=== PATIENT | male | born 1940 | race Caucasian/White ===

== ENCOUNTER 2016-09-30 12:36 | Inpatient (IN) ==
[2016-09-30 13:42] LABS: MANUAL DIFF NEEDED? NO; URINE CULTURE NEEDED? NO; URINE MICRO REVIEW NEEDED? NO; URINE SOURCE CLEAN CATCH
[2016-09-30 13:46] LABS: BASO% 0.4 % (0.0-0.8); EOS# 0.24 X1000 (0.0-0.7); EOS% 4.4 % (0.0-10.0); HEMATOCRIT 40.3 % (42.0-52.0); HEMOGLOBIN 13.6 g/dL (14.0-18.0); LYMPH# 1.24 X1000 (1.2-3.4); LYMPH% 22.6 % (20.5-51.1); MCH 30.4 PG (27-31); MCHC 33.7 g/dL (33-37); MCV 90.2 FL (81-99); MONO# 0.44 X1000 (0.11-0.59); MPV 9.2 FL (7.4-10.4); NEUT% 64.6 % (42.2-75.2); PLT 261 X1000 (130-400); RBC 4.47 XMIL (4.7-6.1)
[2016-09-30 13:49] LABS: BILIRUBIN URINE NEGATIVE (NEGATIVE); BLOOD URINE TRACE (NEGATIVE); COLOR YELLOW; GLUCOSE URINE 1000 mg/dL (NEGATIVE); LEUKOCYTES URINE NEGATIVE (NEGATIVE); NITRITE URINE NEGATIVE (NEGATIVE); PH URINE 5.5; PROTEIN URINE TRACE mg/dL (NEGATIVE); SP GRAVITY URINE 1.009; TURBIDITY URINE CLEAR (CLEAR); UROBILINOGEN URINE NORMAL (NORMAL)
[2016-09-30 13:51] LABS: UR EPITHELIAL CELLS <10 /HPF (<10); URINE BACTERIA NEGATIVE /HPF; URINE RBC <10 /HPF (<10); URINE WBC <10 /HPF (<10)
[2016-09-30 14:01] LABS: AGAP 18; ALBUMIN 3.7 g/dL (3.5-5.0); ALKALINE PHOSPHATASE 111 U/L (32-122); AMYLASE 69 U/L (20-200); BUN 19 mg/dL (8-22); CALCIUM 9.3 mg/dL (8.8-10.2); CHLORIDE 96 mmol/L (98-107); COSMO 283; GOT 14 U/L (10-34); GPT 10 U/L (10-44); LIPASE 209 U/L (13-60); POTASSIUM 4.2 mmol/L (3.5-5.1); SODIUM 137 mmol/L (136-145); TCO2 23 mmol/L (25-35); TOTAL BILIRUBIN 0.19 mg/dL (0.20-1.00); TOTAL PROTEIN 7.5 g/dL (6.3-8.3)
[2016-09-30] MEDS ORDERED: ZOFRAN IV ONE (15:48)
[2016-09-30] MEDS ORDERED: NS 1,000 ML IV ONE (15:48)
--- NOTE | 2016-09-30 15:49 | PROVIDER DOCUMENTATION ---
HPI-General Adult - General Chief Complaint: General Adult Stated Complaint: GENERAL Time Seen by Provider: 09/30/16 15:13 Source: patient, family Allergies/Adverse Reactions: Patient Allergies Allergy/AdvReac Type Severity Reaction Status Date / Time No Known Allergies Allergy Verified 09/30/16 13:39 Home Medications: Home Medication List Medication Instructions Recorded Confirmed Last Taken Type Metformin [Glucophage] 850 mg PO BID 12/10/13 09/30/16 09/30/16 07:00 History Aspirin 81 mg PO DAILY 02/11/16 09/30/16 09/30/16 07:00 History ATORVAstatin [Lipitor] 20 mg PO DAILY 09/30/16 09/30/16 09/30/16 07:00 History Clopidogrel [Plavix] 75 mg PO DAILY 09/30/16 09/30/16 09/30/16 07:00 History Furosemide 40 mg PO DAILY 09/30/16 09/30/16 09/30/16 07:00 History Glipizide [Glipizide ER] 10 mg PO DAILY 09/30/16 09/30/16 09/30/16 07:00 History LISINOpril [Prinivil] 10 mg PO DAILY 09/30/16 09/30/16 09/30/16 07:00 History Metoprolol [Lopressor] 50 mg PO DAILY 09/30/16 09/30/16 09/30/16 07:00 History Polyethylene Glycol [Polyox 1 dose PO DAILY 09/30/16 09/30/16 09/30/16 07:00 History [id number]] Pot Chloride/Pot Bicarb/Cit AC 10 meq PO DAILY 09/30/16 09/30/16 09/30/16 07:00 History [Potassium Cl 25 Meq Tab Eff] Tramadol [Ultram] 50 mg PO PRN PRN 09/30/16 09/30/16 Unknown History - History of Present Illness -Gen Adult Nature of Presenting Problems: 76 year old WM presents with c/o shortness of breath for months, getting worse, abd pain for 1 week, intermittent, with associated loss of appetite, nausea. pt reports he was evaluated by his PMD today for these complaints and they sent him here. Review of Systems - Adult - REVIEW OF SYSTEMS - ADULT Constitutional: reports: see HPI, chills, fever. denies: fatique Eyes: reports: no symptoms reported. denies: discharge, blurred vision, double vision, redness Ears, Nose, Mouth & Throat: reports: no symptoms reported. denies: ear discharge, ear pain, nose pain, loose teeth, throat pain, throat swelling Cardiovascular: reports: no symptoms reported. denies: chest pain, palpitations , syncope Respiratory: reports: see HPI, shortness of breath. denies: chronic cough, cough, dyspnea on exertion, excessive sputum production, hemoptysis, pleurisy, wheezing Gastrointestinal: reports: see HPI, abdominal pain, nausea, poor appetite, vomiting. denies: hematemesis, constipation, diarrhea, difficulty swallowing, frequent heartburn, rectal bleeding Genitourinary: reports: see HPI, urinary retention (with loss of urine stream). denies: dysuria, hematuria Musculoskeletal: reports: no symptoms reported. denies: bone pain, joint pain, joint swelling Integumentary: reports: no symptoms reported. denies: hives, itching, skin sores/ulcer Neurological: reports: no symptoms reported. denies: ataxia, dizziness/vertigo Psychiatric: reports: no symptoms reported Endocrine: reports: no symptoms reported Hematologic/Lymphatic: reports: no symptoms reported. denies: blood clots, easy bruising, prolonged bleeding, swollen lymph nodes Allergic/Immunologic: reports: no symptoms reported. denies: allergic reactions , allergic rhinitis, frequent infections All Other Systems: Reviewed and Negative Past History - Adult - PAST MEDICAL HISTORY-ADULT Review of Records: reports: Old Records Reviewed, Nursing Assessment Review, Medications Reviewed, Social history reviewed & non-contributory. Major Childhood Illnesses: reports: denies history Cardiovascular: reports: cardiac disease, CAD, CHF, HTN, hyperlipidemia Respiratory: reports: denies history Gastrointestinal: reports: GERD Obstetrical/Gynecological: reports: denies history Genitourinary: reports: denies history Musculoskeletal: reports: chronic pain, neck/back injury Neurological: reports: denies history Psychiatric: reports: denies history Endocrine/Immune: reports: Diabetes Diabetes controlled by:: PO Meds Other Conditions: reports: denies history - PRIOR SURGERIES/PROCEDURES Surgical/Procedure History: reports: CABG - IMMUNIZATION STATUS Childhood Immunizations: See Nurse Assessment Flu Vaccine: See Nurse Assessment - FAMILY HISTORY Family History: reviewed, not pertinent - SOCIAL HISTORY Smoking: cigarettes Provider spent 3-5 mins advising pt. on dangers of tobacco.: Discussed manners to quit use, and f/u contacts for add'l counseling. Substance Use: none/never Alcohol Use Frequency: never Physical Exam-General - PHYSICAL EXAM-ADULT Initial Vital Signs Reviewed: Yes - CONSTITUTIONAL General Appearance: appears well, alert, no apparent distress. negative: mild distress, moderate distress, severe distress - EYES Eyes: pink conjunctivae. negative: conjuctival exudate, pale conjunctivae, sclera injected, scleral icterus, subconjunctival hemorrhage - HEAD, EARS, NOSE, MOUTH & THROAT HENMT: normocephalic/atraumatic, moist mucous membranes, normal ENT inspection - NECK Neck: non-tender, full range of motion, supple, normal inspection. negative: C- spine tenderness, limited range of motion, tender lateral, tender midline - RESPIRATORY Respiratory: chest non-tender, lungs clear, normal breath sounds, no pleuratic chest pain, no respiratory distress, no accessory muscle use. negative: respiratory distress, decreased breath sounds, accessory muscle use, crackles, rales, rhonchi, stridor, wheezing - CARDIOVASCULAR Cardiovascular: normal peripheral pulses, regular rate, rhythm, no edema, no gallop, no JVD, no murmur. negative: bradycardia, tachycardia - GASTROINTESTINAL (ABDOMEN) Abdominal Exam: normal bowel sounds, non tender, soft, no organomegaly, no pulsatile mass. negative: abnormal bowel sounds, distended, guarding, rigid, rebound, tenderness (pt reports abd pain resolved upon esamination) - LYMPHATIC Lymphatic: no adenopathy - MUSCULOSKELETAL Back Exam: normal inspection, no CVA tenderness, no vertebral tenderness. negative: CVA tenderness, decreased range of motion, swelling, vertebral tenderness Extremity: normal range of motion, non-tender, normal gait, normal inspection, no pedal edema, no calf tenderness, normal capillary refill, pelvis stable. negative: erythema, inflammation, joint effusion, slow capillary refill, swelling, tenderness Peripheral Pulses: radial (R): 3+, radial (L): 3+, dorsalis-pedis (R): 3+, dorsalis-pedis (L): 3+ - SKIN Integumentary: normal color, normal turgor, warm/dry. negative: pallor, petechiae, purpura, rash, swelling, tenderness - NEUROLOGIC Neurologic: grossly normal, no motor/sensory deficits. negative: facial droop, focal weakness, motor weakness, sensory deficit - PSYCHIATRIC Psych/Mental Status: normal mood/affect, normal thought content, normal thought process, oriented x 3 Progress - PLAN OF CARE/RESULTS Progress/Plan/Lab Results: Vital Signs - 8 hr 09/30/16 12:45 Temperature 98.3 F Pulse Rate 70 Respiratory Rate 18 Blood Pressure 129/56 O2 Sat by Pulse Oximetry 100 Laboratory Results - last 24 hr 09/30/16 09/30/16 09/30/16 12:50 12:50 12:50 WBC 5.49 RBC 4.47 L Hgb 13.6 L Hct 40.3 L MCV 90.2 MCH 30.4 MCHC 33.7 RDW Std Deviation 14.1 Plt Count 261 MPV 9.2 Immature Gran % (Auto) 0.0 Neut % (Auto) 64.6 Lymph % (Auto) 22.6 Maries % (Auto) 8.0 Eos % (Auto) 4.4 Baso % (Auto) 0.4 Immature Gran # (Auto) 0.00 Neut # (Auto) 3.55 Lymph # (Auto) 1.24 Maries # (Auto) 0.44 Eos # (Auto) 0.24 Baso # (Auto) 0.02 Sodium 137 Potassium 4.2 Chloride 96 L Carbon Dioxide 23 L Anion Gap 18 BUN 19 Creatinine 0.8 Estimated GFR/1.73 m2 > 60 BUN/Creatinine Ratio 24 Glucose 225 H Calculated Osmolality 283 Calcium 9.3 Total Bilirubin 0.19 L AST 14 ALT 10 Alkaline Phosphatase 111 Total Protein 7.5 Albumin 3.7 Globulin 3.8 Albumin/Globulin Ratio 1.0 Amylase 69 Lipase 209 H Urine Source CLEAN CATCH Urine Color YELLOW Urine Turbidity CLEAR Urine pH 5.5 Ur Specific Etters 1.009 Urine Protein TRACE A Ur Glucose (Stick) 1000 A Ur Ketones (Stick) NEGATIVE Urine Blood TRACE A Urine Nitrite NEGATIVE Urine Bilirubin NEGATIVE Urobilinogen Dipstick NORMAL Urine Leukocytes NEGATIVE Urine WBC (Auto) <10 Urine RBC (Auto) <10 U Epithel Cells (Auto) <10 Urine Bacteria (Auto) NEGATIVE Orders Category Date Time Status Bladder Scan and Record Result ORDERED Care 09/30/16 15:48 Ordered Orthostatic Vital Signs NOW Care 09/30/16 15:45 Ordered ABDOMEN/PELVIS W/O CONTRAST [CT] Stat Exams 09/30/16 15:47 Ordered CHEST-2 VIEWS [RAD] Stat Exams 09/30/16 15:46 Ordered HEAD W/O CONTRAST [CT] Stat Exams 09/30/16 15:47 Ordered ACETONE SERUM [CHEM] Stat Lab 09/30/16 15:45 Uncollected AMYLASE [CHEM] Stat Lab 09/30/16 12:50 Completed BLOOD CULTURE [BLDCUL] Stat Lab 09/30/16 15:45 Uncollected CBC WITH ELECTRONIC DIFF [HEME] Stat Lab 09/30/16 12:50 Completed CK PROFILE [SP CHEM] Stat Lab 09/30/16 15:46 Ordered COMPREHENSIVE METABOLIC PANEL [CHEM] Stat Lab 09/30/16 12:50 Completed LACTATE, PLASMA [CHEM] Stat Lab 09/30/16 15:45 Uncollected LIPASE [CHEM] Stat Lab 09/30/16 12:50 Completed TROPONIN T Stat Lab 09/30/16 15:46 Ordered UA Reflex [URINALYSIS W/POSS RFLX CULT] [URINALYSIS] Lab 09/30/16 12:50 Completed Stat Ns 1000 ml IV Bolus X1 Med 09/30/16 15:48 Ordered 0.9% Sodium Chloride Inj [Ns] 1,000 ml IV 999 mls/hr Ondansetron [Zofran] Med 09/30/16 15:48 Once 4 mg IV NOW ONE EKG [EKG] Stat Ther 09/30/16 15:45 Ordered Vital Signs - 24 hr 09/30/16 12:45 09/30/16 17:49 Temperature 98.3 F Pulse Rate 70 Pulse Rate [Sitting] 66 Pulse Rate [Standing] 74 Pulse Rate [Supine] 68 Respiratory Rate 18 Blood Pressure 129/56 Blood Pressure [Sitting] 146/69 Blood Pressure [Standing] 155/63 Blood Pressure [Supine] 163/71 O2 Sat by Pulse Oximetry 100 Laboratory Tests 09/30/16 09/30/16 09/30/16 12:50 12:50 12:50 WBC 5.49 RBC 4.47 L Hgb 13.6 L Hct 40.3 L MCV 90.2 MCH 30.4 MCHC 33.7 RDW Std Deviation 14.1 Plt Count 261 MPV 9.2 Immature Gran % (Auto) 0.0 Neut % (Auto) 64.6 Lymph % (Auto) 22.6 Maries % (Auto) 8.0 Eos % (Auto) 4.4 Baso % (Auto) 0.4 Immature Gran # (Auto) 0.00 Neut # (Auto) 3.55 Lymph # (Auto) 1.24 Maries # (Auto) 0.44 Eos # (Auto) 0.24 Baso # (Auto) 0.02 D-Dimer Sodium 137 Potassium 4.2 Chloride 96 L Carbon Dioxide 23 L Anion Gap 18 BUN 19 Creatinine 0.8 Estimated GFR/1.73 m2 > 60 BUN/Creatinine Ratio 24 Glucose 225 H Calculated Osmolality 283 Calcium 9.3 Total Bilirubin 0.19 L AST 14 ALT 10 Alkaline Phosphatase 111 Creatine Kinase Troponin T [id number] Pept Total Protein 7.5 Albumin 3.7 Globulin 3.8 Albumin/Globulin Ratio 1.0 Amylase 69 Lipase 209 H Plasma Lactate Urine Source CLEAN CATCH Urine Color YELLOW Urine Turbidity CLEAR Urine pH 5.5 Ur Specific Etters 1.009 Urine Protein TRACE A Ur Glucose (Stick) 1000 A Ur Ketones (Stick) NEGATIVE Urine Blood TRACE A Urine Nitrite NEGATIVE Urine Bilirubin NEGATIVE Urobilinogen Dipstick NORMAL Urine Leukocytes NEGATIVE Urine WBC (Auto) <10 Urine RBC (Auto) <10 U Epithel Cells (Auto) <10 Urine Bacteria (Auto) NEGATIVE Acetone Level 09/30/16 09/30/16 09/30/16 12:50 16:43 16:43 WBC RBC Hgb Hct MCV MCH MCHC RDW Std Deviation Plt Count MPV Immature Gran % (Auto) Neut % (Auto) Lymph % (Auto) Maries % (Auto) Eos % (Auto) Baso % (Auto) Immature Gran # (Auto) Neut # (Auto) Lymph # (Auto) Maries # (Auto) Eos # (Auto) Baso # (Auto) D-Dimer 0.98 H Sodium Potassium Chloride Carbon Dioxide Anion Gap BUN Creatinine Estimated GFR/1.73 m2 BUN/Creatinine Ratio Glucose Calculated Osmolality Calcium Total Bilirubin AST ALT Alkaline Phosphatase Creatine Kinase 53 Troponin T < 0.010 Rky-H-Kuakxuroznh Pept Total Protein Albumin Globulin Albumin/Globulin Ratio Amylase Lipase Plasma Lactate Urine Source Urine Color Urine Turbidity Urine pH Ur Specific Etters Urine Protein Ur Glucose (Stick) Ur Ketones (Stick) Urine Blood Urine Nitrite Urine Bilirubin Urobilinogen Dipstick Urine Leukocytes Urine WBC (Auto) Urine RBC (Auto) U Epithel Cells (Auto) Urine Bacteria (Auto) Acetone Level 09/30/16 09/30/16 09/30/16 16:43 16:43 16:43 WBC RBC Hgb Hct MCV MCH MCHC RDW Std Deviation Plt Count MPV Immature Gran % (Auto) Neut % (Auto) Lymph % (Auto) Maries % (Auto) Eos % (Auto) Baso % (Auto) Immature Gran # (Auto) Neut # (Auto) Lymph # (Auto) Maries # (Auto) Eos # (Auto) Baso # (Auto) D-Dimer Sodium Potassium Chloride Carbon Dioxide Anion Gap BUN Creatinine Estimated GFR/1.73 m2 BUN/Creatinine Ratio Glucose Calculated Osmolality Calcium Total Bilirubin AST ALT Alkaline Phosphatase Creatine Kinase Troponin T [id number]-Ikgxmvkabce Pept 2111 H Total Protein Albumin Globulin Albumin/Globulin Ratio Amylase Lipase Plasma Lactate 2.4 H Urine Source Urine Color Urine Turbidity Urine pH Ur Specific Etters Urine Protein Ur Glucose (Stick) Ur Ketones (Stick) Urine Blood Urine Nitrite Urine Bilirubin Urobilinogen Dipstick Urine Leukocytes Urine WBC (Auto) Urine RBC (Auto) U Epithel Cells (Auto) Urine Bacteria (Auto) Acetone Level NEGATIVE Orders Category Date Time Status Bladder Scan and Record Result ORDERED Care 09/30/16 15:48 Active Orthostatic Vital Signs NOW Care 09/30/16 15:45 Active ABDOMEN/PELVIS W/O CONTRAST [CT] Stat Exams 09/30/16 15:47 Completed CHEST-2 VIEWS [RAD] Stat Exams 09/30/16 15:46 Completed CTA [ANGIOGRAM/PULMONARY ARTERIES] [CT] Stat Exams 09/30/16 17:39 Draft HEAD W/O CONTRAST [CT] Stat Exams 09/30/16 15:47 Completed ACETONE SERUM [CHEM] Stat Lab 09/30/16 16:43 Completed AMYLASE [CHEM] Stat Lab 09/30/16 12:50 Completed BLOOD CULTURE [BLDCUL] Stat Lab 09/30/16 20:18 Results BNP [PRO B-NATRIURETIC PEPTIDE] Stat Lab 09/30/16 16:43 Completed CBC WITH ELECTRONIC DIFF [HEME] Stat Lab 09/30/16 12:50 Completed CK PROFILE [SP CHEM] Stat Lab 09/30/16 16:43 Completed COMPREHENSIVE METABOLIC PANEL [CHEM] Stat Lab 09/30/16 12:50 Completed D-DIMER [CHEM] Stat Lab 09/30/16 12:50 Completed LACTATE, PLASMA [CHEM] Stat Lab 09/30/16 16:43 Completed LIPASE [CHEM] Stat Lab 09/30/16 12:50 Completed TROPONIN T Stat Lab 09/30/16 16:43 Completed UA Reflex [URINALYSIS W/POSS RFLX CULT] [URINALYSIS] Lab 09/30/16 12:50 Completed Stat 0.9% Sodium Chloride Inj [Ns] 1,000 ml Med 09/30/16 15:48 Discontinued IV 999 mls/hr Ondansetron [Zofran] Med 09/30/16 15:48 Discontinued 4 mg IV NOW ONE EKG [EKG] Stat Ther 09/30/16 15:45 Ordered Reviewed case, radiology, H&P with Dr. Goel, agrees with plan of care and treatment. Vital Signs - 24 hr 09/30/16 12:45 09/30/16 17:49 09/30/16 20:00 Temperature 98.3 F Pulse Rate 70 79 Pulse Rate [Sitting] 66 Pulse Rate [Standing] 74 Pulse Rate [Supine] 68 Respiratory Rate 18 18 Blood Pressure 129/56 180/73 Blood Pressure [Sitting] 146/69 Blood Pressure [Standing] 155/63 Blood Pressure [Supine] 163/71 O2 Sat by Pulse Oximetry 100 95 Result Diagrams: 09/30/16 12:50 09/30/16 12:50 - XRAY 1 XRAY Study: Chest Impression: Abnormal (cardiomegaly) - CT/MRI 1 CT Study: Abdomen, Pelvis Impression: Normal (see radiology report.) 2 CT Study: Head Impression: Normal (chronic microvascular changes) 3 CT Study: Thorax (PE study) Impression: Abnormal (cardiomegaly) - CONSULTS/PCP/HOSPITALIST Notification #1 *Consult/PCP/Hospitalist*: Dr. Jorge Time Discussed: 19:39 Reason/Comments: pancreatitis, shortness of breath, elevated BNP Consult Disposition: Will see in ED, Admit Departure - Departure Time of Disposition Decision: 19:29 DIAGNOSIS: Shortness of breath Pancreatitis Qualifiers: Chronicity: acute Pancreatitis type: idiopathic Acute pancreatitis complication : unspecified Qualified Code(s): K85.00 - Idiopathic acute pancreatitis without necrosis or infection Heart failure Qualifiers: Heart failure type: unspecified heart failure type Heart failure chronicity: acute on chronic Qualified Code(s): I50.9 - Heart failure, unspecified Disposition: ADMITTED INPATIENT 09 Certified Medical Emergency: Emergent Condition: Stable Referrals and Follow-Ups: Amador,Jodi T [Primary Care Provider] - - Critical Care Note This patient required my direct personal management.: No Attestation - Physician/ ARDEN Attestation Patient care was provided by Advanced Practice Provider:: Yes Advanced Practice Provider:: Reed Niño Advanced Practice Provider documentation review:: The Mid-level provider documentation, treatment plan and medical decision making was reviewed by the physician who agrees with all treatment and medical decision making by the MLP.
--- NOTE | 2016-09-30 16:28 | Diag Imaging Result Document ---
PROCEDURE NAME: HEAD W/O CONTRAST - 09/30/[address]: A CT dose reduction protocol was used. COMPARISON: None. FINDINGS: There is moderate diffuse cerebral atrophy. There is moderate periventricular white matter chronic microvascular disease. No intracranial mass or hemorrhage. The skull is intact. The sinuses, mastoids, and middle ears are clear. The kimi is probably also involved with chronic microvascular disease. IMPRESSION: Atrophy and chronic microvascular disease, but no acute disease. [facility]
--- NOTE | 2016-09-30 16:38 | Diag Imaging Result Document ---
PROCEDURE NAME: ABDOMEN/PELVIS W/O CONTRAST - 09/30/2016 CT ABDOMEN PELVIS: A CT dose reduction protocol was used. COMPARISON: 04/24/2016. FINDINGS: No radiodense renal stones. No hydronephrosis or hydroureter. Urinary bladder, prostate, and rectum are normal. No bowel obstruction or inflammation. Normal appendix. There is advanced vascular disease. IMPRESSION: No acute disease or change from prior. [facility]
--- NOTE | 2016-09-30 16:47 | Diag Imaging Result Document ---
PROCEDURE NAME: CHEST-2 VIEWS - 09/30/2016 CHEST X-RAY 2 VIEWS: COMPARISON: 04/24/2016. FINDINGS: Stable pacemaker. Stable CABG changes. Stable cardiomegaly. No obvious infiltrates. Pulmonary vascularity is grossly normal. IMPRESSION: 1. Cardiomegaly. 2. No acute disease.
--- NOTE | 2016-09-30 19:52 | Diag Imaging Result Document ---
PROCEDURE NAME: ANGIOGRAM/PULMONARY ARTERIES - 09/30/2016 CT CHEST WITH INTRAVENOUS CONTRAST. TECHNIQUE: Dose reduction protocol. FINDINGS: There is normal opacification of the pulmonary arteries and their major branches. Sternal wires are present and the heart is mildly enlarged. No thoracic aortic aneurysm or dissection. There are calcified left hilar lymph nodes with a calcified granuloma in the left lower lobe. There is a left-sided pacemaker. No consolidation. No bronchiectasis. IMPRESSION: 1. No pulmonary emboli. 2. There is evidence of a prior granulomatous infection. 3. Mild cardiomegaly. A preliminary report was given at 6:25 p.m.
--- NOTE | 2016-09-30 20:46 | ED EKG INTERP ---
This chart was entered by Ashley Rodriguez Scribe, acting as scribe for Reed Niño CRNP. EKG Interpretation - EKG Time of EKG reading by physician:: 17:16 EKG Read and Signed by:: Yo Martin EKG Interpretation (*Must complete 3 of following elements*): Abnormal Rate: 69 Rhythm: NSR Comments: Abnormal ECG, Septal infract,Possible lateral infract,Twave abnormality Attestation - Physician/ ARDEN Attestation Patient care was provided by Advanced Practice Provider:: Yes Advanced Practice Provider:: Reed Niño Advanced Practice Provider documentation review:: The Mid-level provider documentation, treatment plan and medical decision making was reviewed by the physician who agrees with all treatment and medical decision making by the MLP. This chart was documented by the indicated scribe, (Ashley Rodriguez Scribe) and accurately reflects the services I performed and decisions made by , Reed Niño CRNP, as attested by the provider's signature.
[2016-10-01] MEDS: NS 1,000 ML IV SCH ×3 (01:38→20:40)
--- NOTE | 2016-10-01 05:39 | EKG Report ---
Test Performed on : 09/30/2016 5:16:40 PM Test Reason : weakness Blood Pressure : / mmHG Vent. Rate : 069 BPM Atrial Rate : 069 BPM P-R Int : 180 ms QRS Dur : 124 ms QT Int : 426 ms P-R-T Axes : 040 -13 220 degrees QTc Int : 456 ms Normal sinus rhythm. Septal infarct , age undetermined Possible Lateral infarct , age undetermined T wave abnormality, consider inferior ischemia Abnormal ECG When compared with ECG of 24-APR-2016 13:02, Left bundle branch block is no longer present Septal infarct is now present Borderline criteria for Lateral infarct are now present Unconfirmed Result
--- NOTE | 2016-10-01 05:43 | HISTORY AND PHYSICAL ---
PRIMARY CARE PHYSICIAN: Dr. Leeanne Amador. CHIEF COMPLAINT: Abdominal pain for 1 week. HISTORY OF PRESENTING ILLNESS: A 76-year-old male with a history of hypertension, diabetes mellitus type 2, and coronary artery disease, who presented to the emergency department with a 1- week history of having abdominal pain. He described it as cramping and stated that the pain was not subsiding. He was evaluated in the ER, and he was noted to have mildly elevated lipase. Possibly, this could be consistent with a pancreatitis. The patient will need hospitalization for further management. At the time of my examination, he denied any headache, visual changes, fevers, chills, chest pain, hemoptysis, or any weight changes, but complained of abdominal pain. PAST MEDICAL HISTORY: Includes hypertension, diabetes mellitus type 2, coronary artery disease. PAST SURGICAL HISTORY: Coronary bypass, AICD, bilateral carotid endarterectomies, left leg surgery. ALLERGIES: No known drug allergies. CURRENT MEDICATIONS: As listed in the MAR. SOCIAL HISTORY: Sixty pack-year history of smoking. He denies any history of alcohol or illicit drug use. FAMILY HISTORY: Positive for coronary artery disease in father. REVIEW OF SYSTEMS: Twelve point review of systems as listed in HPI. Other systems negative. PHYSICAL EXAMINATION: GENERAL: Cooperative, friendly, obese male. He is resting comfortably now. VITAL SIGNS: Temperature 98.3 degrees, pulse 70, respiration 18, blood pressure 129/56. He is saturating 100%. HEENT: Atraumatic, normocephalic. Extraocular movements intact. PERRLA. NECK: Supple. CHEST: Clear to auscultation. CARDIOVASCULAR: Regular rate and rhythm. ABDOMEN: Soft. Diffuse tenderness. EXTREMITIES: No edema. NEUROLOGIC: He is awake, alert, oriented x3. GENITOURINARY: No bladder distention. SKIN: Warm. LABORATORIES AND STUDIES: Sodium 137, potassium 4.2, chloride 96, CO2 23, BUN is 19, creatinine 0.8, glucose 225. ProBNP is 2111, lipase is 209. WBC 5.49, hemoglobin 13.6, hematocrit 40.3, platelets 261,000. ASSESSMENT: A 76-year-old male with a history of hypertension, diabetes mellitus type 2, and coronary artery disease, who presented to the emergency department with a 1- week history of having cramping abdominal pain. He had mildly elevated lipase. Possibly, this could be consistent with pancreatitis. Subsequently, he will need hospitalization for further management. 1. Abdominal pain. 2. Elevated lipase, possibly suspected pancreatitis. 3. Diabetes mellitus type 2. 4. Hypertension. PLAN: 1. We will admit patient to medical floor with telemetry. 2. We will keep patient NPO, continue patient with IV fluids, antiemetics, and adequate pain control. 3. We will consult gastroenterology. 4. Monitor blood glucose and put patient on sliding scale insulin regimen. 5. Monitor blood pressure. Resume antihypertensive agents. 6. We will put patient on DVT prophylaxis with SCDs. 7. We will continue to follow and reassess. cc: Eduardo Jorge MD MTDD
[2016-10-01] MEDS: HUMULIN R SUBQ SCH ×4 (06:51→20:32)
[2016-10-01] MEDS: LASIX PO SCH (08:28)
[2016-10-01] MEDS: ASPIRIN PO SCH (08:28)
[2016-10-01] MEDS: PRINIVIL PO SCH (08:29)
[2016-10-01] MEDS: PLAVIX PO SCH (08:29)
[2016-10-01] MEDS: LOPRESSOR PO SCH (08:39)
--- NOTE | 2016-10-01 11:19 | Diag Imaging Result Document ---
PROCEDURE NAME: MATILDE ABDOMEN - 10/01/2016 [facility], 2 VIEWS: FINDINGS: There is a fairly large amount of stool present in the colon particularly the ascending colon. The stomach contains some gas but is not particularly distended, and there is no evidence of small bowel dilatation. No evidence of organomegaly or mass is present. IMPRESSION: Constipation.
--- NOTE | 2016-10-01 11:54 | Diag Imaging Result Document ---
PROCEDURE NAME: ANGIOGRAM/MESENTERIC ARTERY - 10/01/2016 CT ANGIOGRAM OF THE ABDOMEN WITH CONTRAST. MIP IMAGES WERE OBTAINED. FINDINGS: There are scattered splenic granulomata. The spleen is not enlarged. The heart is mildly enlarged. Normal pancreas, adrenal glands, liver, and gallbladder. No renal lesions. No hydronephrosis. No bowel obstruction. There is atherosclerotic plaque at the takeoff of the celiac artery. There is narrowing of between 50% and 70%. Normal takeoff of the superior mesenteric artery. A small amount of plaque is present at the takeoff of each renal artery. No significant stenosis. Mild dilatation to the distal abdominal aorta with a maximum diameter of 2.7 cm. There is plaque in the common iliac arteries. This is more pronounced on the right where there is a stenosis distally of between 50% and 70% which also involves the proximal external artery. There is also focal stenosis in the proximal left external iliac artery of at least 70%. IMPRESSION: 1. 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 2. Mild dilatation to the distal abdominal aorta. [facility]
[2016-10-01] MEDS: SODIUM CHLORIDE 0.9% INJ SCH ×2 (12:09→20:29)
[2016-10-01] MEDS: PROTONIX IV SCH ×2 (12:10→20:30)
[2016-10-01 13:20] LABS: ALLEN TEST YES; BE 2.7 mmoll (-3.0-3.0); BLOOD TYPE ARTERIAL; DRAW SITE R RADIAL; METHB 1.7 % (0.0-1.5); O2(CT) 18.6 mL/dL (15.0-23.0); PCO2(98.6) 44 mmHg (35-45); PO2(98.6) 94 mmHg (60-100); SAMPLE BLOOD; THB 13.8 g/dL (11.5-17.4); pH(98.6) 7.41 (7.35-7.45)
[2016-10-01 13:21] LABS: MODALITY CANNULA
--- NOTE | 2016-10-01 14:37 | CONSULTATION ---
DATE OF CONSULTATION: 10/01/2016 REFERRING PHYSICIAN: Carlton Lau M.D. INDICATION FOR CONSULTATION: 1. Abdominal pain. 2. Nausea. 3. Anemia. PRIMARY CARE PHYSICIAN: Dr. Leeanne Amador M.D. HISTORY OF PRESENT ILLNESS: The patient is a 76-year-old white male who has a history of severe atherosclerotic disease, hypertension, diabetes 2 and hypertension. He presented to the emergency room with 1 week of abdominal pain, constipation followed by diarrhea and nausea. He was also noted to have weakness and fatigue as well as shortness of breath. He was evaluated in the emergency room. His D-dimer was slightly elevated but CTA of the chest was negative for pulmonary embolus. His abdominal CT scan was negative but he was noted to have an elevated lipase and plasma lactate level. Today, the patient complains of epigastric pain, nausea and constipation. We are asked to participate in his care. PAST MEDICAL HISTORY: 1. Hypertension. 2. Diabetes 2. 3. Coronary artery disease. 4. Claudication. 5. Peripheral vascular disease. PAST SURGICAL HISTORY: 1. Coronary artery bypass surgery. 2. AICD. 3. Bilateral carotid endarterectomies. 4. Left leg surgery with vascular bypass. MEDICATION ALLERGIES: None. HOME MEDICATIONS: 1. Ultram. 2. Potassium chloride. 3. Polyethylene glycol. 4. Lopressor. 5. Glucophage. 6. Prinivil. 7. Glipizide. 8. Lasix. 9. Plavix. 10. Aspirin. 11. Lipitor. SOCIAL HISTORY: The patient has a 60 pack year smoking history. There is no history of alcohol or recreational drug use. FAMILY HISTORY: Positive for coronary artery disease. There is no history of cancer. REVIEW OF SYSTEMS: The patient is a difficult historian. He has a very flat affect and reports that he has several things on his mind that he does not want to talk about. PHYSICAL EXAM: Elderly white male in no acute distress.Vital Signs: His blood pressure is 165/68, pulse is 68, respirations 16, temperature of 98.0 degrees. HEENT: Negative for jaundice. His oropharyngeal mucosa membranes are normal. Pulmonary: Lungs are clear to auscultation with normal respiratory effort. Cardiovascular Exam: Reveals regular rate and rhythm with no gallops or rubs. Abdominal Exam: Reveals normoactive bowel sounds. The abdomen is diffusely tender, greatest tenderness in the epigastrium. Extremities: Negative for edema Neurologic: He is alert and oriented x3. He does have a very flat affect. OBJECTIVE DATA: Reveals a hemoglobin of 13.6 with hematocrit of 40.3 and a white count of 5.49. He has 261,000 platelets. D-dimer is 0.98. Sodium is 137, potassium 4.2, chloride 96, CO2 of 23, BUN 19, creatinine 0.8 with a glucose of 225. Calcium is 9.3, total bilirubin 0.19, AST 14, ALT 10, alkaline phosphatase 111, total protein 7.5 and albumin 3.7. His amylase is 69 with a lipase of 209 and a lactate of 2.4. CK is 53 with a troponin less than 0.010. His BNP is 2111. IMPRESSION: 1. Abdominal pain. 2. Nausea. 3. Change in bowel habits. 4. Anemia. 5. Atherosclerotic disease. 6. Elevated lipase. 7. Elevated plasma lactate level. RECOMMENDATION: 1. The patient presents with abdominal pain and change in bowel habits with a mild bump in his lipase and his plasma lactate. While this could be consistent with pancreatitis, it is very worrisome for peptic ulcer disease versus mesenteric ischemia in a patient with known vascular disease. Therefore, I would consider obtaining a CT angio of the mesentery. 2. Begin Protonix 40 mg IV q.12 hours. 3. If the above study is negative, I would consider an EGD if he does not improve with PPI therapy. 4. The patient is on Plavix. Therefore, we would only be able to do a diagnostic EGD without biopsies as I would be reluctant to stop his anticoagulation as he also describes shortness of breath and weakness. 5. I would monitor his CK and troponin levels x3 to ensure that his cardiac status is stable. 6. I would recheck his plasma lactate and monitor for trends. If is increasing that would again suggest mesenteric ischemia as opposed to other GI causes of abdominal pain. 7. Patient reports a change in bowel habits and is currently constipated. I would check a KUB today to assess his status and consider MiraLAX on a daily basis. 8. Additional recommendations to follow based on his clinical course. cc: MD ROMAN Dick
--- NOTE | 2016-10-01 15:56 | PROGRESS NOTE ---
DATE: 10/01/2016 SUBJECTIVE: Mr. Yeager is a 76-year-old, male, he is in no acute distress. He is able to answer questions appropriately. He states his abdominal pain is much improved. He has no nausea, no complaints at this time. OBJECTIVE: Vital Signs: Temperature is 98.4 degrees, heart rate 64, respiratory rate 16, blood pressure 143/67, O2 saturations 100% on 2 L nasal cannula. General: Mr. Yeager is a 76-year-old, male, in no acute distress. Answering questions appropriately. Cardiovascular: S1, S2. Regular rate and rhythm. No rubs, no rubs, gallops, murmurs. Pulmonary: Clear to auscultation. Bilateral breath sounds. No accessory muscle use or work of breathing noted. GI: Soft, nontender, nondistended. Positive bowel sounds x4. Extremities: No edema noted. +2 dorsalis and radial pulses. LABORATORY DATA: No new labs today except for an ABG with pH 7.41, pCO2 44, PO2 94, bicarb 27, base excess 2.7, lactate was 2.4. IMAGING: Abdominal x-ray showed constipation. Mesenteric arteriogram showed stenosis of the celiac artery, proximal left external iliac artery, and right distal common iliac, proximal external iliac arteries are all approaching 70% stenosis. There is mild dilatation to the distal abdominal aorta. ASSESSMENT AND PLAN: 1. Abdominal pain. Could be secondary to constipation but also there is stenosis of the celiac and iliac arteries. Currently he states his abdominal pain is decreased. Gastroenterology has been consulted. 2. Mild possible pancreatitis. Will repeat labs in the morning. IV fluid hydration. 3. Lactic acidosis with stenosis of the celiac artery, iliac arteries, external iliac and internal with a 70% stenosis. Will consult Surgery for recommendations. 4. Diabetes mellitus type 2. Pattern blood glucoses and sliding scale insulin. 5. Hypertension. Stable. Dictated by ROBERTO Conte for Carlton Brown MD cc: ROBERTO Conte MD
--- NOTE | 2016-10-01 19:24 | CONSULTATION ---
DATE OF CONSULTATION: 10/01/2016 REASON FOR CONSULTATION: Celiac and iliac stenosis. HISTORY OF PRESENT ILLNESS: A 76-year-old male was admitted yesterday with abdominal pain of about 1 week's duration described as a soreness that is not particularly severe and it has improved since he was admitted. He currently denies any pain. He denies any nausea, vomiting, fever or chills. He does say his last bowel movement was about 4-5 days ago. He has been passing gas though. He denies any history of postprandial pain, food fear or weight loss. He does report a consistent difficulty walking more than about 100 feet because his legs give out but he does not really describe much in the way of leg pain either at rest or when walking. PAST MEDICAL HISTORY: Peripheral arterial disease, hypertension, diabetes, coronary artery disease. PAST SURGICAL HISTORY: Coronary artery bypass grafting, AICD, bilateral carotid endarterectomies, left fem-pop [place] [address] Dmoinguez. ALLERGIES: No known drug allergies. CURRENT MEDICATIONS: Aspirin, Lipitor, Plavix, Lasix, Prinivil, Lopressor, Protonix, MiraLAX, Madeline-Colace, normal saline. FAMILY HISTORY: Positive for coronary artery disease. SOCIAL HISTORY: He has a 60 pack-year history of smoking. No alcohol or illicit drug use. REVIEW OF SYSTEMS: Ten systems reviewed and negative except as noted above. PHYSICAL EXAMINATION: Vital Signs: Temperature 98.7 degrees, pulse 73, respirations 20, blood pressure 153/74, O2 saturation 98%. General: Well-developed, well-nourished male, in no distress who looks his stated age. HEENT: Normocephalic, atraumatic. Extraocular muscles intact. Pupils equal, round, reactive to light. Sclerae anicteric. Moist mucous membranes. Hearing grossly normal. No oral lesions. Neck: Supple. No thyromegaly. Cardiovascular: Regular rate and rhythm. Respiratory: Bilateral equal breath sounds. Gastrointestinal: Soft, nontender, nondistended. No organomegaly or mass. Normal bowel sounds. No hernias appreciated. Skin: Warm and dry. No rash. Musculoskeletal: Moves all extremities equally well. Extremities: No clubbing, cyanosis, or edema. His legs and feet appear to be warm. No external signs of ischemia. LABORATORY: White blood cell count 5.5, hemoglobin 13.6, hematocrit 40.3, platelets 261,000. ABG was reviewed and shows a pH of 7.4, pCO2 44, PaO2 94, bicarbonate 27, base excess 2.7, lactate 2.4. Complete metabolic profile reviewed and notable for BUN 19, creatinine 0.8, BNP 2111, lipase 209, lactate 2.4. IMAGING: Abdominal x-rays were positive for constipation with stool in the right abdomen. Mesenteric arteriogram was reviewed which shows 50-70% stenosis of the celiac artery at the takeoff. There is a normal superior mesenteric artery. The right common iliac artery and external iliac artery is 50-70% stenosed. The left external iliac artery has 70% stenosis. 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 I do not believe his celiac artery stenosis is clinically significant at this time. His lactate level is very mildly elevated. He is not complaining of any abdominal pain. I think with some hydration this will quickly improve as well as addressing his constipation which Dr. Cooney is doing. In regard to the iliac artery stenosis, this does appear to be symptomatic and I would recommend followup with Dr. Dominguez in the near future for further evaluation and treatment. cc: Reza Spears MD
[2016-10-01] MEDS: LIPITOR PO SCH (20:29)
[2016-10-01] MEDS: PERICOLACE PO SCH (20:29)
[2016-10-01] MEDS: MIRALAX PO SCH (20:40)
[2016-10-02 06:08] LABS: MANUAL DIFF NEEDED? NO
[2016-10-02 06:09] LABS: BASO% 0.4 % (0.0-0.8); EOS# 0.27 X1000 (0.0-0.7); EOS% 4.8 % (0.0-10.0); HEMATOCRIT 40.6 % (42.0-52.0); HEMOGLOBIN 13.6 g/dL (14.0-18.0); LYMPH# 1.37 X1000 (1.2-3.4); LYMPH% 24.2 % (20.5-51.1); MCH 29.8 PG (27-31); MCHC 33.5 g/dL (33-37); MONO# 0.48 X1000 (0.11-0.59); MONO% 8.5 % (1.7-9.3); NEUT% 62.1 % (42.2-75.2); PLT 264 X1000 (130-400); RBC 4.56 XMIL (4.7-6.1)
[2016-10-02] MEDS: HUMULIN R SUBQ SCH ×4 (06:14→21:08)
[2016-10-02 06:17] LABS: INR 1.09; PROTIME 11.5 Seconds (9.2-11.7); PTT 29.7 Seconds (22.0-36.0)
[2016-10-02 06:46] LABS: AMYLASE 33 U/L (20-200); LIPASE 27 U/L (13-60)
[2016-10-02 06:51] LABS: AGAP 13; BUN 8 mg/dL (8-22); CALCIUM 9.2 mg/dL (8.8-10.2); CHLORIDE 101 mmol/L (98-107); COSMO 283; POTASSIUM 4.1 mmol/L (3.5-5.1); SODIUM 141 mmol/L (136-145); TCO2 27 mmol/L (25-35)
[2016-10-02] MEDS: MIRALAX PO SCH ×2 (08:52→21:07)
[2016-10-02] MEDS: PRINIVIL PO SCH (08:53)
[2016-10-02] MEDS: ASPIRIN PO SCH (08:53)
[2016-10-02] MEDS: PLAVIX PO SCH (08:53)
[2016-10-02] MEDS: PERICOLACE PO SCH ×2 (08:56→21:07)
[2016-10-02] MEDS: SODIUM CHLORIDE 0.9% INJ SCH ×2 (08:56→21:07)
[2016-10-02] MEDS: PROTONIX IV SCH ×2 (08:57→21:07)
[2016-10-02] MEDS: LASIX PO SCH (09:04)
[2016-10-02] MEDS: LOPRESSOR PO SCH (10:05)
[2016-10-02] MEDS: NS 1,000 ML IV SCH ×2 (11:02→21:08)
--- NOTE | 2016-10-02 12:25 | PROGRESS NOTE ---
DATE: 10/02/2016 SUBJECTIVE: Mr. Yeager is a 76-year-old, male, who is resting comfortably in bed, reading the newspaper. States he is tolerating clear liquids better. Wishes to have an advanced diet. States he still has constipation. States he had some abdominal pain in the right upper and left upper quadrants with activity today. He states that this pain went away with rest. No other complaints. OBJECTIVE: Vital Signs: Temperature 97.6 degrees, heart rate 74, respiratory rate 18, blood pressure 152/65, O2 saturation 98% on nasal cannula 2 L. General: Mr. Yeager is a 76-year-old, male, who is in no acute distress and able to answer questions appropriately. Cardiovascular: S1, S2. Regular rate and rhythm. No rubs, gallops, murmurs. Pulmonary: Clear to auscultation. Bilateral breath sounds. No accessory muscle use or work of breathing noted. GI: Soft, nontender, nondistended. Hypoactive bowel sounds x4. Extremities: No edema noted. + 2 dorsalis and radial pulses. Skin: Warm, dry, intact. LABORATORY DATA: White blood cells 5000, hemoglobin 13, hematocrit 40, platelet count 264,000. INR 1.09. PTT was 29.7. Sodium 141, potassium 4.1, BUN 8, creatinine 0.6, glucose 152, calcium 9.2, amylase 33, lipase 27. Lactate 1.3. IMAGING: None. ASSESSMENT AND PLAN: 1. Abdominal pain. Could be secondary to constipation or secondary to celiac iliac artery stenosis. He states that his abdominal pain is essentially gone except for when he was up going to the bathroom this morning he felt the right upper and left upper quadrant pain with activity and then when he rested it stopped. Gastroenterology is following. 2. Mild pancreatitis resolved after IV fluid hydration. Continue with clear liquids. 3. Lactic acidosis resolved. 4. Celiac, iliac artery stenosis followed by Dr. Spears with recommendations of possible iliac intervention. Follow up with Dr. Dominguez as outpatient versus inpatient depending on symptoms. 5. Peripheral arterial disease. Some leg pain with ambulation. 6. Constipation. No bowel movement in 4-5 days. He is receiving a stool softeners and laxatives. No bowel movement today. We will try sorbitol or bisacodyl suppository. 7. Hypertension stable. 8. Diabetes mellitus type 2. Continue with pattern blood glucoses, sliding scale insulin. Dictated by ROBERTO Conte for Carlton Brown MD cc: ROBERTO Conte MD
--- NOTE | 2016-10-02 17:48 | PROGRESS NOTE ---
DATE: 10/02/2016 SUBJECTIVE: The patient denies any severe pain. He has some occasional abdominal pain when he gets up and moves around. No new leg pain. He is tolerating clear liquids. OBJECTIVE: He is afebrile. Vital signs are stable.General: He is alert and oriented x4. No acute distress. GI: Soft. Minimal tenderness, nondistended. No mass. LABORATORY: White blood cell count 5.6. 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 Again I do not think he has significant mesenteric ischemia. He probably does have long-standing peripheral arterial disease and would benefit from followup with Dr. Dominguez as an outpatient. cc: Reza Spears MD
[2016-10-02] MEDS: LIPITOR PO SCH (21:07)
[2016-10-03 03:50] VITALS: BP 114/58
[2016-10-03 05:53] LABS: MANUAL DIFF NEEDED? NO
[2016-10-03 05:57] LABS: BASO% 0.2 % (0.0-0.8); HEMATOCRIT 41.2 % (42.0-52.0); HEMOGLOBIN 13.8 g/dL (14.0-18.0); LYMPH# 1.56 X1000 (1.2-3.4); LYMPH% 26.2 % (20.5-51.1); MCH 29.9 PG (27-31); MCHC 33.5 g/dL (33-37); MCV 89.4 FL (81-99); MONO# 0.61 X1000 (0.11-0.59); MONO% 10.3 % (1.7-9.3); MPV 8.8 FL (7.4-10.4); NEUT% 58.3 % (42.2-75.2); PLT 273 X1000 (130-400); RBC 4.61 XMIL (4.7-6.1)
[2016-10-03] MEDS: NS 1,000 ML IV SCH (06:24)
[2016-10-03 06:26] LABS: AGAP 11; BUN 9 mg/dL (8-22); CALCIUM 9.4 mg/dL (8.8-10.2); CHLORIDE 100 mmol/L (98-107); COSMO 283; SODIUM 141 mmol/L (136-145); TCO2 30 mmol/L (25-35)
[2016-10-03] MEDS: HUMULIN R SUBQ SCH (06:44)
[2016-10-03] MEDS: MIRALAX PO SCH (09:06)
[2016-10-03] MEDS: LASIX PO SCH (09:07)
[2016-10-03] MEDS: LOPRESSOR PO SCH (09:07)
[2016-10-03] MEDS: SODIUM CHLORIDE 0.9% INJ SCH (09:07)
[2016-10-03] MEDS: PERICOLACE PO SCH (09:07)
[2016-10-03] MEDS: PROTONIX IV SCH (09:07)
[2016-10-03] MEDS: PRINIVIL PO SCH (09:07)
[2016-10-03] MEDS: PLAVIX PO SCH (09:08)
[2016-10-03] MEDS: ASPIRIN PO SCH (09:08)
--- NOTE | 2016-10-03 09:56 | PROGRESS NOTE ---
DATE: 10/03/2016 SUBJECTIVE: The patient denies any abdominal pain, nausea, or vomiting. He has had a bowel movement. OBJECTIVE: Vital Signs: He is afebrile. Vital signs are stable. General: Alert and oriented x4. No acute distress. Gastrointestinal: Soft, nontender, nondistended. ASSESSMENT AND PLAN: This is a 76-year-old male with peripheral vascular disease as well as mesenteric vascular disease and celiac stenosis. His abdominal symptoms are minimal and probably more related to constipation. He can eat a diet as tolerated and should follow up with Dr. Dominguez as an outpatient for his vascular disorders of the celiac artery and bilateral iliac arteries. cc: Reza Spears MD
--- NOTE | 2016-10-03 18:17 | DISCHARGE SUMMARY ---
ADMISSION DATE: 10/01/2016 DISCHARGE DATE: 10/03/2016 ADMISSION DIAGNOSES: 1. Abdominal pain. 2. Elevated lipase with possible suspected pancreatitis. 3. Diabetes mellitus type 2. 4. Hypertension. DISCHARGE DIAGNOSES: 1. Abdominal pain secondary to constipation versus celiac and iliac artery stenosis and abdominal pain has resolved. 2. Constipation resolved. 3. Mild pancreatitis resolved. 4. Lactic acidosis resolved. 5. Celiac iliac artery stenosis was followed by Dr. Rae and recommended for patient to see Dr. Dominguez as outpatient for iliac stenosis and artery stenosis. 6. Peripheral arterial disease stable. 7. Hypertension stable. 8. Diabetes mellitus type 2 stable. CONSULTATIONS: 1. Dr. Cooney, Gastroenterology. 2. Dr. Rae, Surgery. IMAGING AND PROCEDURES: 1. He had an angiogram of the mesenteric arterial system which revealed stenosis of the celiac artery, proximal left external iliac artery, and right distal common iliac/proximal external iliac arteries with all approaching 70% stenosis. 2. Mild dilatation to the distal abdominal aorta. 3. Abdominal x-ray showed constipation. 4. Abdominal pelvic CT showed no acute disease. 5. Head CT showed atrophy and chronic microvascular disease. 6. Chest x-ray showed cardiomegaly but no acute disease. EKG was normal sinus rhythm. Pulmonary arteriogram showed no pulmonary emboli. Mild cardiomegaly and evidence of the prior granulomatosis infection. HOSPITAL COURSE: The patient is a 76-year-old male who presented on 10/01/2016 with complaints of having a 1-week history of abdominal pain. He describes it as cramping and stated that the pain was not subsiding. He was evaluated in the ER and was noted to have a mildly elevated lipase for possible pancreatitis. Imaging revealed that he had constipation and also revealed that he had stenosis of the iliac and celiac arteries. General Surgery was consulted for this who felt he did not have significant mesenteric ischemia and that he does have long-standing peripheral arterial disease. He would benefit from a follow up with Dr. Dominguez as an outpatient for evaluation. He did the workup for possible mesenteric ischemia. She had ordered the mesenteric arteriogram. Once that was performed, it was believed that the celiac artery stenosis was not clinically significant. He did have lactic acidosis which resolved with IV fluid hydration. His erratic enzymes normalized with IV fluid hydration. Per Dr. Rae in regard to the iliac artery stenosis, he did appear to be symptomatic and recommended follow up with Dr. Dominguez in the near future for further evaluation and treatment. It was felt that his abdominal symptoms were more constipation oriented versus arterial oriented. Prior to discharge, he had multiple bowel movements. He was able to walk the moralez without complaints of abdominal pain. It was deemed appropriate for him to be discharged and follow up with Dr. Dominguez as an outpatient. MEDICATIONS: 1. Aspirin 81 mg p.o. daily, 2. Plavix 75 mg p.o. daily. 3. Lipitor 20 mg p.o. daily. 4. Lasix 40 mg p.o. daily. 5. Glipizide 10 mg p.o. daily. 6. Lisinopril 10 mg p.o. daily. 7. Metformin 850 mg p.o. twice daily. 8. Toprol 50 mg p.o. daily. 9. Prilosec 40 mg p.o. daily. 10. MiraLAX 17 g p.o. twice daily. 11. Potassium 10 mEq p.o. daily. 12. Madeline-Colace 2 tabs p.o. twice daily. 13. Ultram 50 mg p.o. as needed for pain. DISCHARGE EXAMINATION: Vital Signs: Temperature 97.7 degrees, heart rate 72, respiratory rate 18, blood pressure 114/58, and O2 saturation 97% on room air. DISCHARGE LABORATORY DATA: White blood cells 5000, hemoglobin 13, hematocrit 41, and platelet count 273,000. Sodium 141, potassium 4.0, BUN 9, creatinine 0.7, glucose 162, calcium 9.4, lactate 1.1, amylase 33, and lipase 27. DISPOSITION: Home self care. DISCHARGE INSTRUCTIONS: Follow up with Dr. Dmoinguez. Make appointment tomorrow when his office opens. Follow with Dr. Leeanne Amador. Dictated by ROBERTO Conte for Carlton Brown MD cc: ROBERTO Conte MD Lindsay E. Smith, MD Dr. Walker Dr. Seal Dr. Keith
== END 2016-10-03 13:13 | disposition home or self-care (01) ==
LOC: ED 12:36 → 4N 10-01 00:48 → SUATTDRO 10-01 00:48 → 4N 10-02 14:43
PROVIDERS: ATTEND Internal Medicine

== ENCOUNTER 2019-07-12 14:05 | Inpatient (IN) ==
[2019-07-12 15:14] LABS: BASO# 0.02 X1000 (0.0-0.2); BASO% 0.3 % (0.0-0.8); EOS# 0.01 X1000 (0.0-0.7); EOS% 0.1 % (0.0-10.0); HEMATOCRIT 42.6 % (42.0-52.0); HEMOGLOBIN 13.4 g/dL (14.0-18.0); IMM GRAN# 0.01 X1000 (0.0-0.04); IMM GRAN% 0.1 % (0.0-0.5); LYMPH% 12.8 % (20.5-51.1); MCH 31.2 PG (27-31); MCHC 31.5 g/dL (33-37); MCV 99.3 FL (81-99); MONO# 1.13 X1000 (0.11-0.59); MONO% 16.1 % (1.7-9.3); MPV 9.3 FL (7.4-10.4); NEUT# 4.95 X1000 (1.4-6.5); NEUT% 70.6 % (42.2-75.2); PLT 257 X1000 (130-400); RBC 4.29 XMIL (4.7-6.1); RDW 14.3 % (11.5-14.5); WBC 7.02 X1000 (4.8-10.8)
--- NOTE | 2019-07-12 15:21 | Diag Imaging Result Doc PS360 ---
EXAM: CHEST-2 VIEWS - 07/12/2019 HISTORY: cough, fever TECHNIQUE: Chest two views COMPARISON: 02/21/2019 FINDINGS: Heart size appears the upper range of normal. There are sternal wires from previous surgery and transvenous cardiac pacemaker again seen. The lungs appear clear. There is no pleural effusion or pneumothorax identified. 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 IMPRESSION: No evidence of acute disease. Electronically signed by Kaushik Vasquez 07/12/2019 3:19 PM
[2019-07-12 15:31] LABS: INFLUENZA A NEGATIVE (NEGATIVE); INFLUENZA B NEGATIVE (NEGATIVE)
[2019-07-12 15:31] LABS: AGAP 13; ALBUMIN 3.6 g/dL (3.5-5.0); ALKALINE PHOSPHATASE 118 U/L (32-122); BUN 19 mg/dL (8-22); CALCIUM 9.1 mg/dL (8.8-10.2); CHLORIDE 100 mmol/L (98-107); COSMO 303; ESTIMATED GFR > 60; GLUCOSE 386 mg/dL (70-104); GOT 12 U/L (10-34); GPT 12 U/L (10-44); POTASSIUM 4.6 mmol/L (3.5-5.1); SODIUM 143 mmol/L (136-145); TCO2 30 mmol/L (25-35); TOTAL PROTEIN 7.2 g/dL (6.3-8.3)
[2019-07-12] MEDS ORDERED: LASIX IV ONE (15:59)
--- NOTE | 2019-07-12 15:59 | PROVIDER DOCUMENTATION ---
This chart was entered by Leti Phillips Scribe, acting as scribe for Marlen Blakely MD. HPI-General Adult - General Chief Complaint: Cough Stated Complaint: COLD SX Time Seen by Provider: 07/12/19 14:18 Source: patient Allergies/Adverse Reactions: Patient Allergies Allergy/AdvReac Type Severity Reaction Status Date / Time No Known Allergies Allergy Verified 09/30/16 13:39 Home Medications: Home Medication List Medication Instructions Recorded Confirmed Last Taken Type Metformin [Glucophage] 850 mg PO BID 12/10/13 09/30/16 11/08/18 History Aspirin 81 mg PO DAILY 02/11/16 09/30/16 11/08/18 History ATORVAstatin [Lipitor] 20 mg PO DAILY 09/30/16 09/30/16 11/08/18 History Clopidogrel [Plavix] 75 mg PO DAILY 09/30/16 09/30/16 11/08/18 History Glipizide [Glipizide ER] 10 mg PO DAILY 09/30/16 09/30/16 11/08/18 History LISINOpril [Prinivil] 10 mg PO DAILY 09/30/16 09/30/16 11/08/18 History Clindamycin [Cleocin] 300 mg PO Q6HR #30 cap 09/20/18 11/08/18 Rx - History of Present Illness -Gen Adult Nature of Presenting Problems: 78yom presents to ED cc fever, chills, runny nose, sinus congestion, headache and dizziness for 1 wk. Pt denies CP/SOB. Pt has hx of CAD, CHF, COPD. Pt is afebrile and nontoxic upon exam. Location of Pain/Injury: reports: generalized Quality of Pain: reports: aching Severity: reports: mild Onset/Duration: reports: 1 week ago Timing: reports: still present Context/Activities at Onset: reports: light activity Modifying Factors: improves with: nothing Associated Symptoms: reports: cough, dizziness, fever/chills, headaches, sinus congestion/drainage Similar Symptoms Previously?: No Recently seen or treated by another doctor?: No Review of Systems - Adult - REVIEW OF SYSTEMS - ADULT Constitutional: reports: see HPI, chills, fever, fatique Eyes: reports: no symptoms reported Ears, Nose, Mouth & Throat: reports: see HPI, sinus problem. denies: throat pain Cardiovascular: reports: see HPI. denies: chest pain Respiratory: reports: see HPI, cough. denies: shortness of breath Gastrointestinal: reports: no symptoms reported Genitourinary: reports: no symptoms reported Musculoskeletal: reports: no symptoms reported Integumentary: reports: no symptoms reported Neurological: reports: see HPI, dizziness/vertigo, headache/migraines Psychiatric: reports: no symptoms reported Endocrine: reports: no symptoms reported Hematologic/Lymphatic: reports: no symptoms reported Allergic/Immunologic: reports: no symptoms reported All Other Systems: Reviewed and Negative Past History - Adult - PAST MEDICAL HISTORY-ADULT Review of Records: reports: Old Records Reviewed, Nursing Assessment Review, Medications Reviewed, Social history reviewed & non-contributory. Major Childhood Illnesses: reports: denies history Cardiovascular: reports: cardiac disease, CAD, CHF, HTN, hyperlipidemia Respiratory: reports: denies history Gastrointestinal: reports: GERD Obstetrical/Gynecological: reports: denies history Genitourinary: reports: denies history Musculoskeletal: reports: chronic pain, neck/back injury Neurological: reports: denies history Psychiatric: reports: denies history Endocrine/Immune: reports: Diabetes Other Conditions: reports: denies history - PRIOR SURGERIES/PROCEDURES Surgical/Procedure History: reports: CABG - IMMUNIZATION STATUS Childhood Immunizations: See Nurse Assessment Flu Vaccine: See Nurse Assessment - FAMILY HISTORY Family History: reviewed, not pertinent - SOCIAL HISTORY Smoking: cigarettes, greater than 1 pack/day Physical Exam-General - PHYSICAL EXAM-ADULT Initial Vital Signs Reviewed: Yes - CONSTITUTIONAL General Appearance: appears well, alert, no apparent distress - EYES Eyes: PERRL/EOMI, pink conjunctivae. negative: photophobia - HEAD, EARS, NOSE, MOUTH & THROAT HENMT: normocephalic/atraumatic, moist mucous membranes, normal ENT inspection. negative: angioedema, frontal tenderness - NECK Neck: supple, normal inspection - RESPIRATORY Respiratory: chest non-tender, lungs clear, normal breath sounds, no pleuratic chest pain, no respiratory distress, no accessory muscle use. negative: crackles, rales, rhonchi, stridor, wheezing - CARDIOVASCULAR Cardiovascular: normal peripheral pulses, regular rate, rhythm, no edema, no gallop, no JVD, no murmur. negative: bradycardia, tachycardia - GASTROINTESTINAL (ABDOMEN) Abdominal Exam: normal bowel sounds, non tender, soft, no organomegaly, no pulsatile mass. negative: distended, guarding, rigid, rebound - LYMPHATIC Lymphatic: no adenopathy. negative: striations - MUSCULOSKELETAL Back Exam: normal inspection, no CVA tenderness, no vertebral tenderness Extremity: normal range of motion, normal inspection. negative: deformity - SKIN Integumentary: normal color, normal turgor, warm/dry. negative: diaphoresis, jaundice, rash - PSYCHIATRIC Psych/Mental Status: normal mood/affect, oriented x 3. negative: anxious, disheveled Progress - PLAN OF CARE/RESULTS Progress/Plan/Lab Results: Vital Signs - 8 hr 07/12/19 14:12 Temperature 98 F Pulse Rate 96 H Respiratory Rate 18 Blood Pressure 136/77 O2 Sat by Pulse Oximetry 94 L Result Diagrams: 07/12/19 14:50 07/12/19 14:50 - EKG 1 Time of EKG reading by physician:: 15:23 EKG Read and Signed by:: Marlen Blakely EKG Interpretation (*Must complete 3 of following elements*): Abnormal Rate: 81 Rhythm: Atrial Sensed ventricular paced w/prolonged AV QRS: normal FL Interval: normal - XRAY 1 XRAY: Bilateral XRAY Study: Chest Impression: See EMR Report (IMPRESSION: No evidence of acute disease. Electronically signed by Kaushik Vasquez 07/12/2019 3:19 PM) - CONSULTS/PCP/HOSPITALIST Notification #1 *Consult/PCP/Hospitalist*: Dr. Fox Time Discussed: 16:08 Consult Disposition: Admit Departure - Departure Date of Disposition Decision: 07/12/19 Time of Disposition Decision: 16:05 DIAGNOSIS: CHF (congestive heart failure), CHF exacerbation, Non-compliant patient DIAGNOSIS: (Ruled Out): Non-compliant behavior Disposition: ADMITTED INPATIENT 09 Certified Medical Emergency: Emergent Condition: Stable Additional Instructions: ED Follow Up Instructions: You have been treated by a care provider in the Emergency Department. These instructions are being provided to you so you can have an understanding of how to care for yourself upon discharge. Upon discharge from the Emergency Department, you are responsible for making arrangements for follow-up care by a physician of your choice. Take all prescribed medications as directed. Return to the Emergency Department immediately for any new or worsening symptoms. You may call the Physician Referral phone number at [phone] to obtain a list of Physicians who are taking new patients. Referrals and Follow-Ups: Leeanne Amador MD [Primary Care Provider] - Discharge Education: Steps to Quit Smoking, [id number] - Critical Care Note This patient required my direct & personal management of CC.: No Attestation - Physician/ ARDEN Attestation Patient care was provided by Advanced Practice Provider:: No The physician spent face to face time with patient:: Yes Advanced Practice Provider documentation review:: Supervising physician onsite and consulted in the evaluation and care of this patient. The physician did have a face to face encounter with the patient. This chart was documented by the indicated scribe, (Leti Phillips Scribe) and accurately reflects the services I performed and decisions made by me, Marlen Blakely MD, as attested by the provider's signature.
--- NOTE | 2019-07-12 18:18 | EKG Report ---
Test Performed on : 07/12/2019 3:23:38 PM Test Reason : ekg done Blood Pressure : / mmHG Vent. Rate : 081 BPM Atrial Rate : 081 BPM P-R Int : 216 ms QRS Dur : 142 ms QT Int : 430 ms P-R-T Axes : 046 267 117 degrees QTc Int : 499 ms Atrial-sensed ventricular-paced rhythm with prolonged AV conduction Abnormal ECG When compared with ECG of 30-SEP-2016 17:16, Electronic ventricular pacemaker has replaced Sinus rhythm. Unconfirmed Result
[2019-07-12] MEDS ORDERED: ZOFRAN IV PRN ×2 (18:46→18:57)
[2019-07-12] MEDS ORDERED: TYLENOL PO PRN (18:57)
--- NOTE | 2019-07-12 21:47 | HISTORY AND PHYSICAL ---
CHIEF COMPLAINT: Cold symptoms. HISTORY OF PRESENT ILLNESS: The patient is a very pleasant 78-year-old male who presented to the hospital with fevers, chills, runny nose, sinus congestion and headache. He states he has been dizzy for a week. He has had increased cough and congestion. He denies any production to his cough. He notes he has a history of coronary artery disease, congestive heart failure and COPD. PLAN: We are going to admit him to the hospital. He currently has BNP of 11,816, with his most recent at 2111. Place him on antibiotics, given his recent fever, although his chest x-ray is clear and his labs are normal. Influenza screen is negative. Continue Lasix. Blood sugar is elevated at 386. We will add an A1c to his a.m. labs, place him on sliding scale and pattern Accu- Chek. cc: Stanton Fox MD
--- NOTE | 2019-07-12 21:57 | HISTORY AND PHYSICAL ---
CHIEF COMPLAINT: A cough, fever, sinus congestion, headache and dizziness. HISTORY OF PRESENT ILLNESS: This is a 78-year-old gentleman with a history of diabetes mellitus type 2, hypertension, congestive heart failure with an EF of 23% in 2017, cardiomyopathy, who presented to the emergency room complaining of fever, chills, runny nose, sinus congestion, headache and dizziness for 1 week. He denied any chest pain or shortness of breath. He complains of generalized body aches. He denies any recent weight gain or any lower extremity edema. PAST MEDICAL HISTORY: 1. Cardiomyopathy with an ejection fraction of 23% in 2017 status post pacemaker defibrillator. 2. Hypertension. 3. Diabetes mellitus. PAST SURGICAL HISTORY: Back surgery, neck surgery, pacemaker defibrillator placement, carotid endarterectomy, coronary artery bypass graft. SOCIAL HISTORY: He smokes. He denies any alcohol or illicit drug use. ALLERGIES: No stated allergies. HOME MEDICATIONS: A list will be obtained by the nursing staff, and once verified, we will review and restart as appropriate. FAMILY HISTORY: Positive for coronary artery disease in his father and diabetes mellitus and hypertension in close relatives. REVIEW OF SYSTEMS: Discussed with the patient with pertinent positives stated in the HPI. He denied any syncope, any chest pain, palpitations, a productive cough, any nausea, vomiting, diarrhea, constipation, black or bloody vomitus or stools any hematuria, dysuria, frequency, urgency. PHYSICAL EXAMINATION: GENERAL: This is a 78-year-old gentleman who is sitting up on the stretcher in the emergency room in no distress. VITAL SIGNS: Blood pressure is 181/87 with a heart rate of 87, respirations are 20, temperature is 98 degrees with O2 sats 94% on 3 L nasal cannula. EYES: Pupils equal, round, react to light. EOMs are intact. Sclerae anicteric. HEENT: Head is normocephalic, atraumatic. Mucous membranes are moist. NECK: Supple with trachea midline. CARDIOVASCULAR: Regular rate and rhythm. S1 and S2 are appreciated. No murmur. Calves are nontender with pulses palpable x4 extremities. PULMONARY: Breath sounds are diminished with no increased work of breathing noted. Chest rises and falls symmetric with respiration. GASTROINTESTINAL: Abdomen is soft, nontender, nondistended with bowel sounds in all 4 quadrants. NEUROLOGIC: He is alert and oriented x3. SKIN: Warm and dry. LABORATORY DATA: WBC is 7 with hemoglobin 13.4, hematocrit 42.6, and platelets 257,000. Sodium 143, potassium 4.6, BUN 19, creatinine 1 with a glucose of 386. Troponin was 84 with proBNP of 11,816 with troponin of 84. DIAGNOSTIC DATA: 1. EKG is 100% paced at 81. 2. Chest x-ray with no evidence of acute disease. Lungs are clear. No effusion or pneumothorax. ASSESSMENT: 1. Cardiomyopathy with an ejection fraction of 23% in 2017. 2. Congestive heart failure exacerbation. 3. Hypertension. 4. Diabetes mellitus type 2. 5. History of coronary artery disease status post coronary artery bypass graft. PLAN: The patient INCOMPLETE REPORT--DICTATION ENDS HERE. Dictated by ROBERTO Carrillo for Stanton Fox MD cc: ROBERTO Carrillo MD
[2019-07-12] MEDS: HUMULIN R (PARKWAY) SUBQ SCH (22:11)
[2019-07-12] MEDS: ROCEPHIN 1 GM in NS 50 ML IV SCH (22:12)
[2019-07-13] MEDS: LIPITOR PO SCH ×2 (00:32→20:34)
[2019-07-13] MEDS ORDERED: ASPIRIN ONE (05:44)
[2019-07-13] MEDS: ASPIRIN PO SCH ×2 (05:51→09:43)
--- NOTE | 2019-07-13 05:54 | Diag Imaging Result Doc PS360 ---
EXAM: CHEST-2 VIEWS HISTORY: chf,pneumonia TECHNIQUE: Two views COMPARISON: 07/12/2019 FINDINGS: Poor inspiratory effort. Heart is mildly enlarged. There are sternal wires and left-sided pacemaker. No pulmonary edema. No pleural effusions. Old lower thoracic compression fractures. No consolidation. IMPRESSION: Cardiomegaly, but no other evidence of congestive failure. No pneumonia. Electronically signed by Andres Cristobal 07/13/2019 5:52 AM
[2019-07-13 07:02] LABS: BASO# 0.01 X1000 (0.0-0.2); BASO% 0.1 % (0.0-0.8); EOS# 0.09 X1000 (0.0-0.7); EOS% 1.3 % (0.0-10.0); HEMATOCRIT 42.6 % (42.0-52.0); HEMOGLOBIN 13.2 g/dL (14.0-18.0); IMM GRAN# 0.02 X1000 (0.0-0.04); IMM GRAN% 0.3 % (0.0-0.5); LYMPH# 1.13 X1000 (1.2-3.4); LYMPH% 16.7 % (20.5-51.1); MCH 31.1 PG (27-31); MCV 100.2 FL (81-99); MONO# 1.07 X1000 (0.11-0.59); MONO% 15.8 % (1.7-9.3); MPV 9.2 FL (7.4-10.4); NEUT# 4.45 X1000 (1.4-6.5); NEUT% 65.8 % (42.2-75.2); PLT 258 X1000 (130-400); RBC 4.25 XMIL (4.7-6.1); RDW 14.3 % (11.5-14.5); WBC 6.77 X1000 (4.8-10.8)
[2019-07-13 07:12] LABS: HEMOGLOBIN A1C 8.9 % (4.8-6.0)
[2019-07-13 07:47] LABS: AGAP 12; ALBUMIN 3.3 g/dL (3.5-5.0); ALKALINE PHOSPHATASE 102 U/L (32-122); BUN 22 mg/dL (8-22); CALCIUM 8.9 mg/dL (8.8-10.2); CHLORIDE 98 mmol/L (98-107); COSMO 295; CREATININE 0.7 mg/dL (0.7-1.2); ESTIMATED GFR > 60; GLUCOSE 245 mg/dL (70-104); GOT 13 U/L (10-34); GPT 11 U/L (10-44); MAGNESIUM 1.7 mg/dL (1.5-2.7); POTASSIUM 4.2 mmol/L (3.5-5.1); SODIUM 142 mmol/L (136-145); TCO2 33 mmol/L (25-35); TOTAL PROTEIN 6.8 g/dL (6.3-8.3)
[2019-07-13] MEDS: PRINIVIL PO SCH (09:43)
[2019-07-13] MEDS: PLAVIX PO SCH (09:43)
[2019-07-13] MEDS: LASIX IV SCH (09:44)
[2019-07-13] MEDS: HUMULIN R (PARKWAY) SUBQ SCH ×4 (10:14→20:48)
--- NOTE | 2019-07-13 10:31 | PROGRESS NOTE ---
DATE: 07/13/2019 SUBJECTIVE: Patient notes that he still feels terrible, although notes his breathing may be slightly improved. Denies any fevers or chills. Still has cough, mildly productive. Still has shortness of breath and dyspnea. OBJECTIVE: Vitals: On physical examination, temperature 97.7, pulse 85, respiratory rate 18, blood pressure 130/78. General: Patient is pleasant. He is in no current distress. He is sitting up on the side of the bed. HEENT: Normocephalic. Neck: Supple. Cardiovascular: Regular rate. Chest: Relatively clear. No wheezing, no crackles currently. No rhonchi. Abdomen: Soft, nondistended. Extremities: Moves all extremities. No edema. Neurologic: No focal changes. Skin: Warm, dry and no rashes. ASSESSMENT: 1. Congestive heart failure, systolic, with a recent ejection fraction in 2017 at 23% with exacerbation. 2. Cardiomyopathy. 3. Hypertension. 4. Acute bronchitis. 5. Known coronary artery disease. 6. Type 2 diabetes. PLAN: We are going to continue the patient in the hospital. Continue antibiotics, Lasix, breathing treatments, oxygen and will follow. cc: Stanton Fox MD
--- NOTE | 2019-07-13 10:36 | EKG Report ---
Test Performed on : 07/13/2019 10:32:59 AM Test Reason : CAD, CHF Blood Pressure : / mmHG Vent. Rate : 078 BPM Atrial Rate : 078 BPM P-R Int : 132 ms QRS Dur : 146 ms QT Int : 420 ms P-R-T Axes : 100 -54 125 degrees QTc Int : 478 ms Atrial-sensed ventricular-paced rhythm Abnormal ECG When compared with ECG of 13-JUL-2019 05:27, (Unconfirmed) premature ventricular complexes. are no longer present Confirmed by Jose Franklin MD ([id number]) on 07/13/2019 11:27:57 AM
--- NOTE | 2019-07-13 17:19 | EKG Report ---
Test Performed on : 07/13/2019 05:27:19 AM Test Reason : CHEST PAIN Blood Pressure : / mmHG Vent. Rate : 079 BPM Atrial Rate : 079 BPM P-R Int : 248 ms QRS Dur : 130 ms QT Int : 418 ms P-R-T Axes : 042 -27 097 degrees QTc Int : 479 ms Atrial-sensed ventricular-paced rhythm with prolonged AV conduction with occasional premature ventric ular complexes. Abnormal ECG When compared with ECG of 12-JUL-2019 15:23, (Unconfirmed) premature ventricular complexes. are now present Vent. rate has decreased BY 2 BPM Unconfirmed Result
[2019-07-13] MEDS: ROCEPHIN 1 GM in NS 50 ML IV SCH (20:34)
[2019-07-14] MEDS: ASPIRIN PO SCH (10:15)
[2019-07-14] MEDS: PRINIVIL PO SCH (10:15)
[2019-07-14] MEDS: PLAVIX PO SCH (10:15)
[2019-07-14] MEDS: LASIX IV SCH (10:15)
[2019-07-14] MEDS: HUMULIN R (PARKWAY) SUBQ SCH ×4 (10:17→21:32)
--- NOTE | 2019-07-14 14:18 | ECHO REPORT ---
ORDER DATE: 07/13/2019 2D ECHOCARDIOGRAM: ECHOCARDIOGRAPHIC MEASUREMENTS: 1. Interventricular septum 1.5. 2. Left ventricular posterior wall 1.5. 3. Diastolic diameter 5.6 cm. 4. Left atrium 5.4 cm. 5. Aorta 2.4 cm. SUMMARY: 1. Aortic valve leaflets are calcified trileaflet. 2. Tricuspid valve was normal. 3. Mitral valve was normal. 4. There is mitral annular calcification. 5. Pulmonic valve was normal. 6. Optison was used to assess left ventricular systolic function. 7. Pacing leads were noted in the right chamber. 8. Normal left ventricular cavity size. 9. Concentric left ventricular hypertrophy. 10. Estimated ejection fraction of 20 to 25 percent. 11. There is global hypokinesis. In addition, there is severe apical akinesis. 12. There is associated grade 2 diastolic dysfunction. 13. There is moderate to severe left atrial enlargement. 14. There is moderate right atrial enlargement. 15. There is mild mitral regurgitation. 16. Peak velocity across the tricuspid valve was 2.5 m/sec. 17. Pulmonary artery systolic pressure of 35 to 40 mmHg. 18. There is mild mitral regurgitation. 19. Aortic valve leaflets are sclerosed. 20. There is no aortic stenosis. 21. There is mild aortic regurgitation. 22. There is no pericardial effusion or obvious intracardiac mass or thrombus. cc: MD Leigh Banerjee CRNP
[2019-07-14] MEDS: ROCEPHIN 1 GM in NS 50 ML IV SCH (21:29)
[2019-07-14] MEDS: LIPITOR PO SCH (21:29)
--- NOTE | 2019-07-15 00:24 | PROGRESS NOTE ---
DATE: 07/14/2019 SUBJECTIVE: Patient notes that he is still short of breath, still having some cough. Denies any chest pain, palpitations. Denies fevers. Denies any production to his cough. PHYSICAL EXAMINATION: Vital Signs: Temperature 98.6 degrees, pulse 85, respiratory rate 18, BP 144/71. General: Patient is pleasant. Currently in mild respiratory distress. HEENT: Normocephalic. Neck: Supple. Cardiovascular: Regular rate. Chest: Positive rhonchi. Good air movement. No wheezing. Abdomen: Soft, nondistended. Extremities: Moves all extremities. ASSESSMENT: 1. Elevated troponin. Cardiology has been consulted. 2. Cardiomyopathy. 3. Congestive heart failure systolic with an ejection fraction of 23% in 2017 with current exacerbation. 4. Hypertension. 5. Diabetes. PLAN: We will continue patient in the hospital. Appreciate Cardiology input regarding his elevated troponin. We will continue medications. Hopefully home over the next 1 or 2 days cc: Stanton Fox MD MTDD
[2019-07-15] MEDS: HUMULIN R (PARKWAY) SUBQ SCH ×4 (06:53→21:07)
[2019-07-15] MEDS: PRINIVIL PO SCH (08:45)
[2019-07-15] MEDS: ASPIRIN PO SCH (08:45)
[2019-07-15] MEDS: PLAVIX PO SCH (08:45)
[2019-07-15] MEDS: LASIX IV SCH (08:52)
[2019-07-15 10:30] LABS: HEMATOCRIT 44.8 % (42.0-52.0); HEMOGLOBIN 14.1 g/dL (14.0-18.0); MCH 31.2 PG (27-31); MCHC 31.5 g/dL (33-37); MCV 99.1 FL (81-99); MPV 9.3 FL (7.4-10.4); RBC 4.52 XMIL (4.7-6.1); RDW 13.4 % (11.5-14.5); WBC 8.92 X1000 (4.8-10.8)
[2019-07-15] MEDS: GLUCOPHAGE PO SCH ×2 (10:50→17:00)
[2019-07-15 10:54] LABS: AGAP 11; ALBUMIN 3.5 g/dL (3.5-5.0); ALKALINE PHOSPHATASE 120 U/L (32-122); BUN 21 mg/dL (8-22); CALCIUM 9.3 mg/dL (8.8-10.2); CHLORIDE 91 mmol/L (98-107); COSMO 293; CREATININE 0.7 mg/dL (0.7-1.2); ESTIMATED GFR > 60; GLUCOSE 316 mg/dL (70-104); GOT 11 U/L (10-34); GPT 9 U/L (10-44); MAGNESIUM 1.7 mg/dL (1.5-2.7); SODIUM 139 mmol/L (136-145); TCO2 37 mmol/L (25-35); TOTAL PROTEIN 7.2 g/dL (6.3-8.3)
--- NOTE | 2019-07-15 20:34 | PROGRESS NOTE ---
DATE: 07/15/2019 SUBJECTIVE: Patient says he still does not feel well, still short of breath, still fatigued. PHYSICAL EXAMINATION: Vital Signs: Temperature 98 degrees, pulse 90, respiratory 20, BP 152/65. General: Patient is pleasant. He is in no current respiratory distress, although he is lying flat in the bed. He is somewhat chronically ill. HEENT: Normocephalic. Neck: Supple. Cardiovascular: Regular rate. Chest: Decreased breath sounds but equal. Abdomen: Soft, nondistended. Extremities: Moves all extremities. ASSESSMENT: 1. Cardiomyopathy. 2. Systolic congestive heart failure with mild exacerbation, ejection fraction of 20% to 24%, similar to his 23% in 2017. 3. Elevated troponin. His troponin was elevated on Tuesday and we consulted Cardiology. It has continued to climb. Today it has gone from 140 to 190. We are going to transfer him to [facility] to allow Cardiology to see him more consistently. 4. Hypertension. 5. Diabetes. cc: Stanton Fox MD
[2019-07-15] MEDS: LIPITOR PO SCH (21:42)
[2019-07-15] MEDS: ROCEPHIN 1 GM in NS 50 ML IV SCH (21:42)
[2019-07-16] MEDS ORDERED: TYLENOL PO PRN (00:48)
[2019-07-16] MEDS ORDERED: ZOFRAN IV PRN (00:49)
[2019-07-16] MEDS: HUMULIN R SUBQ SCH ×5 (01:24→20:37)
[2019-07-16] MEDS: PRINIVIL PO SCH (08:03)
[2019-07-16] MEDS: ASPIRIN PO SCH (08:03)
[2019-07-16] MEDS: GLUCOPHAGE PO SCH ×2 (08:03→16:18)
[2019-07-16] MEDS: PLAVIX PO SCH (08:04)
[2019-07-16] MEDS: LASIX IV SCH (08:04)
--- NOTE | 2019-07-16 09:12 | Diag Imaging Result Doc PS360 ---
EXAM: CHEST-PORTABLE INDICATION: cough, pr viral URI. hx of CHF TECHNIQUE: One view COMPARISON: 07/13/2019 FINDINGS: Inspiration is somewhat suboptimal. The lungs remain grossly clear. There is no discrete pleural fluid collection or pneumothorax. Cardiac silhouette is stable. IMPRESSION: Essentially stable chest. Electronically signed by Mike Santiago 07/16/2019 9:10 AM
--- NOTE | 2019-07-16 10:47 | EKG Report ---
Test Performed on : 07/16/2019 09:50:41 AM Test Reason : elevated troponins Blood Pressure : / mmHG Vent. Rate : 095 BPM Atrial Rate : 095 BPM P-R Int : 242 ms QRS Dur : 142 ms QT Int : 390 ms P-R-T Axes : 052 097 -35 degrees QTc Int : 490 ms Suspect unspecified pacemaker failure Atrial-sensed ventricular-paced rhythm with prolonged AV conduction with frequent premature ventricul ar complexes. Abnormal ECG When compared with ECG of 13-JUL-2019 10:32, premature ventricular complexes. are now present Vent. rate has increased BY 17 BPM Confirmed by Clifton Araujo MD ([id number]) on 07/16/2019 4:15:30 PM
--- NOTE | 2019-07-16 13:08 | CONSULTATION ---
DATE OF CONSULTATION: 07/16/2019 IMPRESSION: 1. Very mild nonspecific elevation in troponin, probably related to persistent hypoxemia from chronic obstructive pulmonary disease with exacerbation and significant underlying atherosclerotic coronary disease. 2. Chronic obstructive pulmonary disease with exacerbation and associated hypoxemia. 3. Severe atherosclerotic coronary artery disease. The patient is status post previous coronary bypass grafting and has severe ischemic cardiomyopathy. He is status post implantable defibrillator. 4. Chronic systolic heart failure. 5. Peripheral vascular disease. 6. Hypertension. 7. Hyperlipidemia. 8. Type 2 diabetes mellitus. 9. Obesity. 10. Chronic ongoing cigarette use. RECOMMENDATIONS: 1. Check CPK with isoenzymes. 2. Continue medical management of the patient's coronary atherosclerosis. 3. Aggressively treat COPD exacerbation. HISTORY: This 78-year-old white male with past history of severe atherosclerotic coronary disease, ischemic cardiomyopathy, severe COPD, peripheral vascular disease, ongoing cigarette use, hypertension, hyperlipidemia, and type 2 diabetes mellitus was admitted after he presented productive cough and shortness of breath. He is a somewhat reluctant historian. He just recently became symptomatic with shortness of breath and cough productive of yellow sputum. There has been no chest pain. Unfortunately, he continues to smoke cigarettes. He was noted to have persistent hypoxemia. Troponins are mildly elevated, and for that reason, Cardiology was consulted. He has been followed by Dr. Dallas Vila for severe coronary disease and ischemic cardiomyopathy. He has not had any recent orthopnea. There has been no angina. PAST MEDICAL HISTORY: 1. Severe atherosclerotic coronary disease with previous coronary bypass grafting and severe ischemic cardiomyopathy. Patient is status post implantable defibrillator. 2. Severe chronic obstructive pulmonary disease. 3. Peripheral vascular disease with previous left femoral to popliteal bypass, as well as bilateral carotid endarterectomies. 4. Obesity. 5. Type 2 diabetes mellitus. 6. Hypertension. 7. Hyperlipidemia. 8. Abdominal aortic aneurysm. 9. Chronic obstructive pulmonary disease. 10. Chronic pain disorder. PAST SURGICAL HISTORY: Includes previous coronary bypass grafting, left femoral to popliteal bypass, left carotid endarterectomy, right carotid endarterectomy, implantable defibrillator with [employer] [place] device, toe amputation, unspecified back surgery, and multiple percutaneous arterial angioplasty/stent procedures in the legs, as well as carotid angioplasty/stenting. ALLERGIES: He has no known drug allergies. MEDICATIONS PRIOR TO ADMISSION: As listed. SOCIAL HISTORY: He lives at home with family. He is retired. He continues to smoke cigarettes. He denies alcohol use. FAMILY HISTORY: Positive for coronary artery disease as well as diabetes mellitus hypertension. REVIEW OF SYSTEMS: Pulmonary: Noteworthy for shortness of breath and cough productive of yellow sputum. Gastrointestinal: Negative. Constitutional: Negative. Other Systems: The remainder of the review of systems is negative/noncontributory with 14 total systems reviewed. PHYSICAL EXAMINATION: General: Reveals an obese, somewhat barrel-chested older white male in no distress on supplemental oxygen per nasal cannula. Vital Signs: Blood pressure 157/75, heart rate 94 and regular. Oxygen saturation 92% to 96% on nasal cannula oxygen. HEENT: Extraocular movements intact. Mucous membranes are moist. Neck: Supple without jugular distention evident. Chest: Auscultation of the chest reveals a few rhonchi on the right and somewhat diminished breath sounds diffusely. Cardiac: Exam reveals a regular rate and rhythm without appreciable murmur or gallop. Abdomen: Soft. Bowel sounds audible. Extremities: Without edema. Neurologic: Alert and fully oriented. Speech is fluent. Moves all 4 extremities equally well. Skin: Warm and dry. Psychiatric: Reveals mood to be appropriate. PERTINENT DATA: A 12-lead EKG demonstrates sinus rhythm with atrial sensed ventricular paced rhythm and occasional premature ventricular complex. LABORATORY DATA: Includes a white blood cell count 8.92, hematocrit 44.8, hemoglobin 14.1, platelet count 310,000. Sodium 139, potassium 4, chloride 91, carbon dioxide 37, BUN 21, creatinine 0.7, glucose 316. Initial troponin T 84 with followup troponin T high sensitivities of 137, 139, 192. CPK initially 65 with followup CPK 104. cc: Brendan Naidu MD
[2019-07-16] MEDS: COREG PO SCH ×2 (14:09→20:36)
--- NOTE | 2019-07-16 15:09 | PROGRESS NOTE ---
DATE: 07/16/2019 INTERVAL HISTORY: Patient still reports some productive cough. Some mild dyspnea on exertion but comfortable at rest. REVIEW OF SYSTEMS: Twelve point review of systems negative except as per interval history. LABS: Glucose 121-268. VITAL SIGNS: T-max 99.3 degrees, pulse 94, respirations 16, blood pressure 137/75. O2 saturation 96% on 3 L by nasal cannula. PHYSICAL EXAMINATION: General: No acute distress. Vitals: As above. HEENT: Normocephalic, atraumatic. Moist mucous membranes. No cervical adenopathy. Cardiovascular: Regular rate and rhythm. No rubs or gallops noted. Pulmonary: Mildly decreased throughout otherwise essentially clear to auscultation bilaterally. Abdomen: Soft, nontender, nondistended. Bowel sounds positive. Extremities: Peripheral pulses intact. No clubbing, cyanosis, or edema. Neurologic: Cranial nerves grossly intact. No focal deficits. Psychiatric: Normal mood and affect. Awake, alert, cooperative. ASSESSMENT AND PLAN: 1. Elevated troponin, [id number] myocardial infarction versus demand ischemia/type 2 myocardial infarction. The patient had mild up trend in his troponins prompting transfer here. Cardiology has evaluated the patient, recommends optimization of respiratory status and further monitoring and medical management. 2. Cough and dyspnea. Oxygen low normal on room air earlier today. Mildly decreased air entry but not really any wheezing or rales. Chest x-ray essentially unremarkable. BNP was elevated but nothing else clinically that looks like exacerbation of heart failure. Possibly mild chronic obstructive pulmonary disease exacerbation, but suspect most of this is chronic. We will give some nebulizers and steroids, but I suspect he is approaching the best he is going to get. His cough is likely due to a viral upper respiratory infection. 3. Hypertension. Acceptable control on current therapy. Monitor. 4. Coronary artery disease. Continue aspirin. 5. Hyperlipidemia. Continue statin. 6. Diabetes. Some occasional moderate elevations, but overall acceptable control. Continue monitoring and may add low-dose basal insulin if he remains high. 7. Tobacco. Patient has been counseled on cessation.
[2019-07-16] MEDS: DUONEB (A & A) INH SCH ×2 (16:16→19:49)
[2019-07-16] MEDS: PREDNISONE PO SCH (16:18)
[2019-07-16] MEDS ORDERED: LASIX IV ONE (18:38)
[2019-07-16] MEDS: LIPITOR PO SCH (20:36)
[2019-07-16] MEDS: ROCEPHIN 1 GM in NS 50 ML IV SCH (20:37)
[2019-07-17] MEDS: DUONEB (A & A) INH SCH ×7 (00:02→23:52)
[2019-07-17] MEDS: HUMULIN R SUBQ SCH ×2 (06:50→11:49)
[2019-07-17] MEDS: PREDNISONE PO SCH (08:16)
[2019-07-17] MEDS: GLUCOPHAGE PO SCH ×2 (08:16→17:02)
[2019-07-17] MEDS: PRINIVIL PO SCH (08:16)
[2019-07-17] MEDS: PLAVIX PO SCH (08:16)
[2019-07-17] MEDS: COREG PO SCH ×2 (08:16→20:32)
[2019-07-17] MEDS: ASPIRIN PO SCH (08:16)
[2019-07-17] MEDS: LASIX IV SCH (08:17)
[2019-07-17 09:04] LABS: ALLEN TEST NO; BE 13.2 mmoll (-3.0-3.0); BLOOD TYPE ARTERIAL; METHB 1.1 % (0.0-1.5); O2(CT) 18.6 mL/dL (15.0-23.0); O2HB 90.8 % (95.0-99.0); PO2(98.6) 59 mmHg (60-100); SAMPLE BLOOD; SAO2 93.7 % (95.0-100.0); THB 14.6 g/dL (11.5-17.4); pH(98.6) 7.37 (7.35-7.45)
[2019-07-17 09:07] LABS: MODALITY CANNULA; PCO2(98.6) 73 mmHg (35-45)
[2019-07-17] MEDS: SOLU-MEDROL IV SCH ×2 (09:48→20:32)
--- NOTE | 2019-07-17 14:28 | PROGRESS NOTE ---
DATE: 07/17/2019 INTERVAL HISTORY: The patient is largely asymptomatic at this point. No acute events overnight. No new complaints. REVIEW OF SYSTEMS: A 12-point review of systems is negative, except as per interval history. LABORATORY DATA: ABG with pH 7.37, pCO2 of 73, PO2 of 59 on 3 L by nasal cannula. Glucose 183 to 281. Troponin 295. Other labs pending. OBJECTIVE: Vital Signs: T-max 98.3 degrees, pulse 64, respirations 20, blood pressure 144/45, O2 saturation 98% on 2 L by nasal cannula next. General: No acute distress. HEENT: Normocephalic, atraumatic. Moist mucous membranes. Neck: No cervical adenopathy. Cardiovascular: Regular rate and rhythm. No rubs or gallops noted. Pulmonary: Mildly decreased breath sounds throughout, which is slightly improved from previous, but does have some mild end-expiratory wheezing today, which was not present previously. No increased work of breathing or accessory muscle use. Abdomen: Soft, nontender, nondistended. Bowel sounds positive. Extremities: Peripheral pulses intact. No clubbing, cyanosis, or edema. Neurologic: Cranial nerves grossly intact. No focal deficits identified. Psychiatric: Normal mood and affect. Awake, alert, fairly cooperative. ASSESSMENT AND PLAN: 1. Elevated troponin, non ST-elevation myocardial infarction versus demand ischemia/type 2 myocardial infarction. The patient has had continued mild up-trend in his troponin. Cardiology is following the patient. 2. Mild chronic obstructive pulmonary disease exacerbation, chronic hypercapnic respiratory failure, acute versus chronic hypoxic respiratory failure. The patient does have some decreased air entry and some fairly mild wheezing. ABG shows pretty significant hypercapnia, but normal pH suggesting that it is likely chronic. Also had a borderline saturation on 3 liters on that ABG suggesting some level of hypoxia of uncertain chronicity. Chest x-ray has been clear. He has had a little bit of a cough, but it is likely a viral upper respiratory tract infection. Will go up on his steroids a little bit, continue nebulizers, but suspect that his respiratory status is not too far from his baseline. The patient may need setup for home oxygen at discharge. 3. Hypertension. Acceptable control on current therapy. Monitor. 4. Coronary artery disease. Continue aspirin. 5. Hyperlipidemia. Continue statin. 6. Diabetes. A little more elevated today. Patient currently on his home metformin and low-dose sliding scale. Will bump him up to the medium sliding scale dose, and monitor. 7. Tobacco. The patient has been counseled on cessation.
[2019-07-17] MEDS: HUMALOG SUBQ SCH ×2 (17:03→22:47)
[2019-07-17] MEDS: ROCEPHIN 1 GM in NS 50 ML IV SCH (20:32)
[2019-07-17] MEDS: LIPITOR PO SCH (20:32)
--- NOTE | 2019-07-17 21:06 | PROGRESS NOTE ---
DATE: 07/17/2019 SUBJECTIVE: The patient continues without chest discomfort or shortness of breath on supplemental oxygen. OBJECTIVE: Vital Signs: Blood pressure 124/46, heart rate 82, oxygen saturation 96% on nasal cannula oxygen at 2 L/minute. Neck: Jugular venous distention appears to be mildly elevated. Chest: Clear to auscultation with diminished breath sounds diffusely. Cardiac: Reveals a regular rate and rhythm without appreciable murmur or gallop. Extremities: There is no evidence of peripheral edema. LABORATORY DATA: Includes serial CPKs of 104, 54 and 45 and serial troponin Ts, high sensitivity, of 139, 192, 239 and 295. IMPRESSION: 1. Mild nonspecific elevation in troponin with normal CPKs. I suspect this is very well likely related to supply-demand mismatch related to chronic obstructive pulmonary disease exacerbation with possible component of congestive heart failure (right-sided) and underlying atherosclerotic coronary disease. 2. Chronic obstructive pulmonary disease with exacerbation and associated hypoxemia. 3. Component of congestive heart failure, probably more right sided. This seems to be improving with diuresis. 4. Severe atherosclerotic coronary disease with previous coronary bypass grafting and severe ischemic cardiomyopathy. He is status post implantable defibrillator. He continues without angina. 5. Chronic systolic heart failure. 6. Peripheral vascular disease. 7. Hypertension. 8. Hyperlipidemia. 9. Type 2 diabetes mellitus. 10. Obesity. 11. Chronic ongoing cigarette use. RECOMMENDATIONS: 1. Diurese further, gently. 2. Continue medical management of patient's coronary atherosclerosis. 3. Aggressively treat chronic obstructive pulmonary disease exacerbation. He may be approaching a point where he may qualify for home oxygen if he is not already on this. 4. Smoking cessation strongly advised. He immediately expresses reluctance to discontinue cigarette use. cc: Brendan Naidu MD
[2019-07-18 06:32] LABS: EOS# 0.02 X1000 (0.0-0.7); EOS% 0.3 % (0.0-10.0); HEMATOCRIT 42.9 % (42.0-52.0); HEMOGLOBIN 13.5 g/dL (14.0-18.0); LYMPH# 0.46 X1000 (1.2-3.4); LYMPH% 5.8 % (20.5-51.1); MCH 30.8 PG (27-31); MCHC 31.5 g/dL (33-37); MCV 97.9 FL (81-99); MONO# 0.36 X1000 (0.11-0.59); MONO% 4.6 % (1.7-9.3); MPV 9.3 FL (7.4-10.4); NEUT# 7.04 X1000 (1.4-6.5); NEUT% 89.3 % (42.2-75.2); PLT 330 X1000 (130-400); RBC 4.38 XMIL (4.7-6.1); RDW 13.3 % (11.5-14.5); WBC 7.88 X1000 (4.8-10.8)
[2019-07-18] MEDS: DUONEB (A & A) INH SCH ×3 (06:37→10:56)
[2019-07-18] MEDS: HUMALOG SUBQ SCH ×2 (06:43→10:47)
[2019-07-18 06:45] LABS: ESTIMATED GFR > 60
[2019-07-18 06:49] LABS: AGAP 10; BUN 43 mg/dL (8-22); CALCIUM 8.8 mg/dL (8.8-10.2); CHLORIDE 88 mmol/L (98-107); COSMO 289; CREATININE 0.9 mg/dL (0.7-1.2); GLUCOSE 304 mg/dL (70-104); POTASSIUM 4.9 mmol/L (3.5-5.1); SODIUM 133 mmol/L (136-145); TCO2 35 mmol/L (25-35)
[2019-07-18 08:00] LABS: LYMPHS 4 % (21-51); SEGS 92 % (42-75)
[2019-07-18] MEDS: ASPIRIN PO SCH (08:40)
[2019-07-18] MEDS: GLUCOPHAGE PO SCH (08:40)
[2019-07-18] MEDS: SOLU-MEDROL IV SCH (08:40)
[2019-07-18] MEDS: PLAVIX PO SCH (08:40)
[2019-07-18] MEDS: LASIX IV SCH (08:40)
[2019-07-18] MEDS: PRINIVIL PO SCH (08:40)
[2019-07-18] MEDS: COREG PO SCH (08:40)
[2019-07-18 12:12] VITALS: BP 106/85
[2019-07-18 13:41] LABS: ALLEN TEST NO; BE 11.2 mmoll (-3.0-3.0); BLOOD TYPE ARTERIAL; HCO3-(ACT) 33.5 mmoll (20.0-26.0); METHB 1.1 % (0.0-1.5); O2(CT) 17.4 mL/dL (15.0-23.0); PO2(98.6) 54 mmHg (60-100); SAMPLE BLOOD; THB 13.8 g/dL (11.5-17.4); pH(98.6) 7.43 (7.35-7.45)
[2019-07-18 13:44] LABS: MODALITY ROOM AIR
[2019-07-18 13:45] LABS: O2HB 89.8 % (95.0-99.0); PCO2(98.6) 57 mmHg (35-45)
--- NOTE | 2019-07-19 21:59 | DISCHARGE SUMMARY ---
ADMISSION DATE: 07/12/2019 DISCHARGE DATE: 07/18/2019 DISPOSITION: Home. FOLLOW-UP: Will be Dr. Leeanne Amador, Dr. Dallas Vila. CONSULTATION DURING THIS ADMISSION: Cardiology was consulted. The patient was seen by Dr. Naidu. INVASIVE PROCEDURES DONE DURING THIS ADMISSION: None. IMAGING STUDIES OF SIGNIFICANT: 1. A chest x-ray on admission showed no evidence of acute disease. A repeat x-ray 2 days later showed no evidence of acute disease. 2. An echocardiogram showed an ejection fraction of 20 to 25 percent with global hypokinesis. Severe apical akinesis. ADMISSION DIAGNOSES: 1. Cardiomyopathy with ejection fraction of 23 percent. 2. Congestive heart failure. 3. Hypertension. 4. History of coronary artery disease status post bypass graft. DIAGNOSES AT THE TIME OF DISCHARGE: 1. Acute hypoxemic respiratory failure secondary to combination of congestive heart failure and chronic obstructive pulmonary disease exacerbation. 2. Congestive heart failure exacerbation ejection fraction of 20 to 25% associated with global hypokinesis and severe apical akinesis. 3. Ischemic cardiomyopathy. 4. Coronary artery disease status post coronary artery bypass grafting and implantable defibrillator. 5. Chronic obstructive pulmonary disease exacerbation. 6. History of peripheral vascular disease. 7. Diabetes mellitus. Presenting A1c 8.9. 8. Tobacco use and abuse. 9. Elevated troponin concerning for non-ST elevation myocardial infarction. DISCHARGE MEDICATIONS: 1. Metformin 850 b.i.d. 2. Lisinopril 10 mg p.o. daily. 3. Clopidogrel 75 mg p.o. daily. 4. Glipizide 10 mg p.o. daily. 5. Atorvastatin 20 mg p.o. daily. 6. Levofloxacin 500 mg p.o. daily. 7. Prednisone 20 mg p.o. daily. 8. Januvia 100 mg p.o. daily. 9. Aspirin 81 mg p.o. daily. PRESENTING COMPLAINT: Cough, sinus congestion, some shortness of breath. HISTORY OF PRESENTING COMPLAINT: Mr. Yeager is a 79-year-old male who is known to have severe ischemic cardiomyopathy, ejection fraction of 23%, status post pacemaker, coronary artery disease, hypertension, diabetes mellitus, presented to the emergency room because of sinus congestion some generalized weakness and shortness of breath. Upon presentation, he was found to have be saturating about 94% on room air. He was initially admitted to [facility]. After about 2 days into his admission to [facility], it was noted that his troponins were going up, so a decision was made to transfer him to [facility] for higher level of care. HOSPITAL COURSE: Mr. Yeager was transferred to the [facility]. He was admitted to [facility] and was seen by Cardiology. During the hospital course, Mr. Yeager was started back on his home medication. It was also thought that he had a COPD exacerbation was treated with antibiotics, nebulization. He was put on diuretic therapy, which he responded well. On the day of the discharge, Mr. Yeager expressed his desire to wanting to be discharged or he would leave [place]. He seems to be fairly stable and not as symptomatic as when he came in. We think that he is fair to be discharged. However, an ABG which was done prior to his discharge saw slight improvement in the pCO2. However, his PO2 was still 54 and his oxyhemoglobin was 89.8 on the arterial blood gas. Mr. Yeager was advised to go home on oxygen therapy. However, he declined very strongly. Mr. Yeager was also on insulin for his glucose control. His A1c was 8.9, so his 2 oral hypoglycemic agents have not been controlling his glucose very well. He was, however, very mad to have been on insulin during the hospital course and he was very adamant not wanting to go home on insulin, so we decided to add Januvia to his insulin to his diabetic medication regimen and let him follow up with his primary care physician for better glycemic control follow-up. Mr. Yeager has been advised on multiple encounters by different providers on tobacco cessation. However, he does not seems to be ready to discontinue the habit. Mr. Yeager is, however, stable and we are going to discharge him. His current vitals: Blood pressure is 106/85, pulse of 78, respirations 20, temperature is 97.8 degrees. All the discharge instructions have been discussed with Mr. Yeager including tobacco cessation. He voiced understanding. Time spent for discharge is 38 minutes. cc: MD Leeanne Trejo MD
== END 2019-07-18 15:37 | disposition home or self-care (01) | DRG 280 ==
LOC: P.ED 14:05 → P.EDIPHOLD 23:09 → SUATTDRO 23:09 → P.MEDSURG 07-13 06:38 → 2N 07-15 18:36
PROVIDERS: ATTEND Internal Medicine